=== PATIENT | female | born 1955 | race African-American/Black ===

== ENCOUNTER 2016-10-27 10:03 | Emergency (ER) | payer MEDICARE, MEDICAID ==
[~2016-10-27] VITALS: Ht 149.9 cm; Wt 77.6 kg
[~2016-10-27 10:03] MED LIST: LACTULOSE20 GM/301 ORAL; NORCO 5-325 TA1 EACH ORAL; VICODIN 5-3001 EACH ORAL; diuretic
[2016-10-27 10:15] VITALS: BP 115/70
--- NOTE | 2016-10-27 10:31 | Emergency Room Report ---
History of Present Illness General Chief Complaint: Sore Throat Source: Patient Present Illness HPI 61-year-old female no significant past medical history presenting with sore throat for the last 2 days. Patient reports mild cough. Patient denies any fever or any chills. He states that daughter has a sore throat for the last week. Patient has been able to eat and drink normally Allergies: Coded Allergies: No Known Allergies (Unverified , 06/23/13) Patient History Past Medical History: none Past Surgical History: none Pertinent Family History: none Now: No Review of Systems ENT: Reports: throat pain All Other Systems: negative except mentioned in HPI Physical Exam Vital Signs Date Time Temp Pulse Resp B/P Pulse Ox O2 Delivery O2 Flow Rate FiO2 10/27/16 10:10 97.9 80 15 115/70 98 Room Air Sp02 EP Interpretation: reviewed, normal General Appearance: normal inspection, well appearing, no apparent distress, alert, GCS 15, non-toxic Head: normocephalic, atraumatic Eyes: bilateral eye EOMI, bilateral eye PERRL, bilateral eye normal inspection ENT: normal voice, moist mucus membranes, other - Mild bilateral tonsillar erythema with tiny pinpoint vesicles. No exudates. No tonsillar enlargement or uvula enlargement or deviation. No signs of BOAT FINISHER Neck: normal inspection, full range of motion, supple, no bony tend Respiratory: normal inspection, lungs clear, normal breath sounds, no respiratory distress, no retraction, no wheezing, speaking full sentences, chest symmetrical Cardiovascular #1: normal inspection, regular rate, rhythm, normal capillary refill Gastrointestinal: normal inspection, non tender, soft, non-distended, no guarding Musculoskeletal: normal inspection, back normal, normal range of motion, non- tender Neurologic: normal inspection, alert, oriented x3, responsive, motor strength/ tone normal, sensory intact, normal gait, speech normal Psychiatric: normal inspection, judgement/insight normal, memory normal Skin: normal inspection, normal color, no rash, warm/dry, well hydrated, normal turgor Medical Decision Making Diagnostic Impression: Primary Impression: Viral pharyngitis ER Course 61 Yo F with sore throat for 2days DDX: viral vs. infectious mononucleosis vs. bacterial pharyngitis vs. allergies Other serious causes such as BOAT FINISHER / RPA / deep space neck infection history/physical most consistent with viral pharyngitis Plan: nsaids, supportive care. Abx not indicated at this time ER course: Patient remains stable in ED. Disposition: Patient will be discharged to home. Patient will follow up with primary care doctor within 5 days. Strict return precautions discussed with patient such as worsening throat pain/swelling, dysphagia, high fever or chills, shortness of breath, abdominal pain, which may indicate severe illness. Patient verbalized understanding and agreed with plan. Last Vital Signs Date Time Temp Pulse Resp B/P Pulse Ox O2 Delivery O2 Flow Rate FiO2 10/27/16 10:15 97.9 15 115/70 98 Room Air 10/27/16 10:10 80 Disposition: HOME, SELF-CARE Condition: Stable Additional Instructions: Please follow up with your primary care doctor within 3 days. PLEASE TAKE NAPROXEN FOR PAIN. Please return to the emergency room immediately if you are experiencing severe or worsening pain, high fevers or chills, shortness of breath, worsening throat pain, inability to swallow Gunnar Nielsen M.D. Oct 27, 2016 10:31
[2016-10-27 10:50] VITALS: BP 115/70
== END 2016-10-27 10:53 | disposition home or self-care (01) ==
LOC: EMR 10:32
DX: J02.9 Acute pharyngitis, unspecified (principal)
CPT/HCPCS: 99282

== ENCOUNTER 2018-10-17 09:43 | Emergency (ER) | payer MEDICARE, MEDICAID ==
[~2018-10-17] VITALS: Ht 149.9 cm; Wt 79.4 kg
--- NOTE | 2018-10-17 10:00 | NUR ---
ED Nurse Note: Patent walked into ED c/o nausea, vomiting, diarrhea since this morning after eating chicken from last night. patient is alert awake x4 ambulatory.
--- NOTE | 2018-10-17 10:12 | Emergency Room Report ---
History of Present Illness General Chief Complaint: Nausea, Vomiting, and Diarrhea Source: Patient Present Illness HPI Patient presents with abdominal pain vomiting and diarrhea that began last night. She had some chicken that may had not been okay. She denies any dysuria. The pain is fairly significant, although she is complaining more about nausea. She has had multiple bouts of diarrhea through the night and morning. She denies any melena or hematochezia. The diarrhea is brown in color. Is fairly watery. She is never had this problem before. She denies any history of diverticulitis, renal stones, dysuria, urinary tract infection. She denies coffee grounds or hematemesis. The pain is rated 5/10 and crampy worsened before bouts of diarrhea. Is diffuse. 2014 she had abdominal pain. She has constipation and low potassium at that time. This feels different to her. She denies diabetes or high blood pressure. No fevers, chills, sore throat, chest pain, palpitations, shortness of breath, joint pain, rashes, visual changes, headache. Allergies: Coded Allergies: No Known Allergies (Unverified , 10/17/18) Patient History Past Medical History: see triage record Social History: Denies: smoking Social History Narrative Here with her daughter Reviewed Nursing Documentation: PMH: Agreed; PSxH: Agreed Nursing Documentation-PMH Past Medical History: No History, Except For Review of Systems All Other Systems: negative except mentioned in HPI Physical Exam Vital Signs Date Time Temp Pulse Resp B/P (MAP) Pulse Ox O2 Delivery O2 Flow Rate FiO2 10/17/18 09:50 97.5 100 18 106/72 (83) 100 Room Air Sp02 EP Interpretation: reviewed, normal General Appearance: well appearing, no apparent distress, GCS 15 Head: normocephalic, atraumatic Eyes: bilateral eye normal inspection, bilateral eye PERRL ENT: moist mucus membranes Neck: supple Respiratory: lungs clear, normal breath sounds Cardiovascular #1: regular rate, rhythm Cardiovascular #2: 2+ radial (R) Gastrointestinal: normal inspection, normal bowel sounds, no mass, non- distended, no guarding, no rebound, tenderness - Diffuse Genitourinary: no CVA tenderness Musculoskeletal: back normal, gait/station normal, normal range of motion Neurologic: alert, oriented x3, grossly normal Psychiatric: anxious Skin: no rash Medical Decision Making Diagnostic Impression: Primary Impression: Nausea, vomiting, and diarrhea Additional Impression: Hypokalemia ER Course Presents with abdominal pain nausea vomiting diarrhea. Differential includes gastroenteritis, food poisoning, diverticulitis, pancreatitis amongst others. Evaluation will be with EKG, abdominal film and labs. The patient will receive IV hydration, Reglan, Benadryl and morphine. EKG without injury. Abdominal film with paucity of gas. Normal white count. Electrolytes significant for low potassium. Still nauseated. Zofran administered. Tolerated potassium. Feeling anxious and requests Ativan. Improved and tolerating ice chips. Still with nausea. Patient states pain is improved. Still passing loose stools. Wants to go home with a trial of antiemetics. She does have pain medication at home. Discussed results with patient and daughter. Also discussed treatment plan with close observation at home and follow-up with her doctor next week. Patient stable for outpatient observation and treatment. Laboratory Tests Test 10/17/18 10:21 10/17/18 12:18 White Blood Count 10.7 K/UL (4.8-10.8) Red Blood Count 4.94 M/UL (4.20-5.40) Hemoglobin 14.2 G/DL (12.0-16.0) Hematocrit 41.0 % (37.0-47.0) Mean Corpuscular Volume 83 FL (80-99) Mean Corpuscular Hemoglobin 28.8 PG (27.0-31.0) Mean Corpuscular Hemoglobin Concent 34.6 G/DL (32.0-36.0) Red Cell Distribution Width 13.4 % (11.6-14.8) Platelet Count 323 K/UL (150-450) Mean Platelet Volume 6.1 FL (6.5-10.1) L Neutrophils (%) (Auto) 76.9 % (45.0-75.0) H Lymphocytes (%) (Auto) 17.7 % (20.0-45.0) L Monocytes (%) (Auto) 4.2 % (1.0-10.0) Eosinophils (%) (Auto) 0.3 % (0.0-3.0) Basophils (%) (Auto) 0.8 % (0.0-2.0) Prothrombin Time 10.2 SEC (9.30-11.50) Prothrombin Time INR 1.0 (0.9-1.1) PTT 24 SEC (23-33) Sodium Level 137 MMOL/L (136-145) Potassium Level 3.1 MMOL/L (3.5-5.1) L Chloride Level 101 MMOL/L (98-107) Carbon Dioxide Level 23 MMOL/L (21-32) Anion Gap 14 mmol/L (5-15) Blood Urea Nitrogen 14 mg/dL (7-18) Creatinine 0.9 MG/DL (0.55-1.30) Estimate Glomerular Filtration Rate > 60 mL/min (>60) Glucose Level 163 MG/DL (74-106) H Calcium Level 9.7 MG/DL (8.5-10.1) Total Bilirubin 0.4 MG/DL (0.2-1.0) Aspartate Amino Transferase (AST) 23 U/L (15-37) Alanine Aminotransferase (ALT) 25 U/L (12-78) Alkaline Phosphatase 74 U/L (46-116) Troponin I 0.000 ng/mL (0.000-0.056) Total Protein 8.1 G/DL (6.4-8.2) Albumin 4.1 G/DL (3.4-5.0) Globulin 4.0 g/dL Albumin/Globulin Ratio 1.0 (1.0-2.7) Lipase 108 U/L (73-393) Urine Color Pale yellow Urine Appearance Clear Urine pH 7 (4.5-8.0) Urine Specific [place] 1.010 (1.005-1.035) Urine Protein Negative (NEGATIVE) Urine Glucose (UA) Negative (NEGATIVE) Urine Ketones 2+ (NEGATIVE) H Urine Blood 3+ (NEGATIVE) H Urine Nitrite Negative (NEGATIVE) Urine Bilirubin Negative (NEGATIVE) Urine Urobilinogen Normal MG/DL (0.0-1.0) Urine Leukocyte Esterase Negative (NEGATIVE) Urine RBC 2-4 /HPF (0 - 2) H Urine WBC 0 /HPF (0 - 2) Urine Squamous Epithelial Cells Few /LPF (NONE/OCC) Urine Bacteria Occasional /HPF (NONE) EKG Diagnostic Results Rate: normal Rhythm: NSR ST Segments: no acute changes Rhythm Strip Diag. Results EP Interpretation: yes Rhythm: NSR, no PVC's, no ectopy Other X-Ray Diagnostic Results Other X-Ray Diagnostic Results : X-Ray ordered: Abdomen # of Views/Limited Vs Complete: 1 View Indication: Other EP Interpretation: Yes Interpretation: nonspecific bowel gas, no sbo, other - No masses Impression: No acute disease Electronically Signed by: Electronically signed by Lew Bradford MD Last Vital Signs Date Time Temp Pulse Resp B/P (MAP) Pulse Ox O2 Delivery O2 Flow Rate FiO2 10/17/18 15:30 97.5 94 18 120/65 100 Room Air Status: improved Disposition: HOME, SELF-CARE Condition: Improved Scripts Famotidine (PEPCID AC) 20 Mg Tablet 20 MG PO DAILY, #7 TAB Prov: Lew Bradford MD 10/17/18 Promethazine HCl (Promethegan) 25 Mg Supp.rect 25 MG RECTAL Q8HR PRN for Nausea & Vomiting, #4 SUPP 1 Refill Prov: Lew Bradford MD 10/17/18 Promethazine Hcl* (PHENERGAN*) 25 Mg Tablet 25 MG ORAL Q8HR PRN for Nausea & Vomiting, #8 TAB 1 Refill Prov: Lew Bradford MD 10/17/18 Ondansetron Odt* (ZOFRAN ODT*) 4 Mg Tab.rapdis 4 MG BC EVERY 8 HOURS, #6 TAB 1 Refill Prov: Lew Bradford MD 10/17/18 Lew Bradford MD Oct 17, 2018 10:12
[2018-10-17] MEDS ORDERED: Metoclopramide 10mg/2ml Inj IVP ONE (10:15)
[2018-10-17] MEDS ORDERED: Morphine Sulfate 4mg/ml Inj (IV USE ONLY) IVP ONE (10:15)
[2018-10-17] MEDS ORDERED: DiphenhydrAMINE 50mg/ml Inj IVP ONE (10:15)
[2018-10-17 10:45] LABS: BASOPHILS % (AUTO) 0.8 % (0.0-2.0); EOSINOPHILS % (AUTO) 0.3 % (0.0-3.0); HEMOGLOBIN 14.2 G/DL (12.0-16.0); LYMPHOCYTES % (AUTO) 17.7 % (20.0-45.0); MEAN CORPUSCULAR VOLUME 83 FL (80-99); MONOCYTES % (AUTO) 4.2 % (1.0-10.0); NEUTROPHILS % (AUTO) 76.9 % (45.0-75.0); PLATELET COUNT 323 K/UL (150-450); RED BLOOD COUNT 4.94 M/UL (4.20-5.40); RED CELL DISTRIBUTION WIDTH 13.4 % (11.6-14.8); WHITE BLOOD COUNT 10.7 K/UL (4.8-10.8)
--- NOTE | 2018-10-17 10:47 | Diagnostic Imaging Report ---
Indication: Trauma pain Technique: XRAY Abdomen 1v Comparison: None Findings: Nonspecific bowel gas pattern with overall paucity of bowel gas. No gaseous distention of small bowel loops to suggest small bowel obstruction. No evidence of free intraperitoneal air. There are degenerative changes in the spine. No acute osseous abnormality. Visualized lung bases grossly clear. No radiopaque foreign body. Impression: Nonspecific bowel gas pattern as above.
[2018-10-17 10:58] LABS: ANION GAP 14 mmol/L (5-15); BLOOD UREA NITROGEN 14 mg/dL (7-18); CALCIUM 9.7 MG/DL (8.5-10.1); CARBON DIOXIDE 23 MMOL/L (21-32); CHLORIDE 101 MMOL/L (98-107); CREATININE 0.9 MG/DL (0.55-1.30); POTASSIUM 3.1 MMOL/L (3.5-5.1); SODIUM 137 MMOL/L (136-145)
[2018-10-17 11:01] LABS: ALANINE AMINOTRANSFERASE 25 U/L (12-78); ALBUMIN 4.1 G/DL (3.4-5.0); ALKALINE PHOSPHATASE 74 U/L (46-116); ASPARTATE AMINO TRANSFERASE 23 U/L (15-37); BILIRUBIN,TOTAL 0.4 MG/DL (0.2-1.0)
[2018-10-17 11:39] VITALS: BP 120/65
[2018-10-17] MEDS ORDERED: Morphine Sulfate 2mg/ml Inj(IV/IM USE ONLY) IVP ONE (12:45)
--- NOTE | 2018-10-17 12:53 | NUR ---
ED Nurse Note: PT. GIVEN WARM BLANKETS
[2018-10-17 12:55] LABS: APPEARANCE,URINE CLEAR; BILIRUBIN, URINE NEGATIVE (NEGATIVE); COLOR,URINE PALE YELLOW; GLUCOSE, URINE (UA) NEGATIVE (NEGATIVE); KETONES,URINE 2+ (NEGATIVE); LEUKOCYTE ESTERASE ,URINE NEGATIVE (NEGATIVE); NITRITE,URINE NEGATIVE (NEGATIVE); PH,URINE 7 (4.5-8.0); PROTEIN,URINE NEGATIVE (NEGATIVE); UROBILINOGEN,URINE NORMAL MG/DL (0.0-1.0)
[2018-10-17] MEDS ORDERED: LORazepam Inj 2mg/ml 1ml IV ONE (15:00)
[2018-10-17] MEDS ORDERED: PEPCID AC20 M2 PO (15:24)
[2018-10-17] MEDS ORDERED: PHENERGAN SUPP25 MG RECTAL (15:24)
[2018-10-17] MEDS ORDERED: PHENERGAN25 M1 ORAL (15:24)
[2018-10-17] MEDS ORDERED: ONDANSETRON ODT4 MG BC (15:24)
[2018-10-17 15:30] VITALS: BP 120/65
--- NOTE | 2018-10-17 15:30 | NUR ---
ER DISCHARGE NOTE: Patient is cleared to be discharged per ERMD DR RIBEIRO, pt is aox4, on room air, with stable vital signs. pt was given dc and prescription instructions, pt was able to verbalize understanding, pt id band and iv site removed without complications. pt is able to ambulate with steady gait. pt took all belongings.
== END 2018-10-17 15:30 | disposition home or self-care (01) ==
LOC: EMR 10:26
DX: R11.2 Nausea with vomiting, unspecified (principal); R19.7 Diarrhea, unspecified; E87.6 Hypokalemia
CPT/HCPCS: 36415; 74018; 80053; 81003; 83690; 84484; 85025; 85610; 85730; 96361; 96374; 96375; 96376; 99284; J1200; J2270; J2405; J2765; J8499

== ENCOUNTER 2019-08-24 09:11 | Emergency (ER) | payer MEDICARE, MEDICAID ==
[~2019-08-24] VITALS: Ht 149.9 cm; Wt 79.4 kg
[~2019-08-24 09:11] MED LIST changes: +ONDANSETRON ODT4 MG BC; +PEPCID AC20 M2 PO; +PHENERGAN SUPP25 MG RECTAL; +PHENERGAN25 M1 ORAL; +ZOFRAN4 M3 ORAL
[2019-08-24 09:21] VITALS: BP 159/84
--- NOTE | 2019-08-24 09:21 | NUR ---
ED Nurse Note: Patient walked in to ED c/o nause, vomiting, diarrhea since this AM. Pt also c/o lower abdominal pain. Per pt, she ate some greens yesterday and thinks she got food poisoning. Pt is retching and throwing up saliva. AAOx4, verbally responsive. No SOB. Afebrile. Pt placed on pathology tech.
--- NOTE | 2019-08-24 09:30 | NUR ---
ED Nurse Note: IV line established. Blood specimen collected and sent to lab.
--- NOTE | 2019-08-24 09:43 | Emergency Room Report ---
History of Present Illness General Chief Complaint: Vomiting Source: Patient Present Illness HPI This patient states that she believes she has food poisoning. She states that yesterday evening around 7 PM she did have some [place] greens. She states she woke up around 7 AM this morning with nausea and vomiting. She denies fever or chills. She denies cough or congestion. She denies chest pain or shortness of breath. She denies abdominal pain. She denies dysuria or hematuria. She admits to using marijuana daily and heavily. She has no other complaints. 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 Patient History Past Medical History: see triage record, HTN, GERD Social History: Reports: drug use - THC, daily/heavy; Denies: smoking, alcohol use Now: No Reviewed Nursing Documentation: PMH: Agreed; PSxH: Agreed Review of Systems All Other Systems: negative except mentioned in HPI Physical Exam Vital Signs Date Time Temp Pulse Resp B/P (MAP) Pulse Ox O2 Delivery O2 Flow Rate FiO2 08/24/19 09:15 99.1 102 18 159/84 (109) 99 Room Air Sp02 EP Interpretation: reviewed, normal General Appearance: no apparent distress, alert, GCS 15, non-toxic, other - Actively vomiting, anxious, hyperventilating Head: normocephalic, atraumatic Eyes: bilateral eye normal inspection, bilateral eye PERRL ENT: hearing grossly normal, normal pharynx, no angioedema, normal voice Neck: full range of motion, supple/symm/no masses Respiratory: chest non-tender, lungs clear, normal breath sounds, no respiratory distress, no retraction, no accessory muscle use, speaking full sentences Cardiovascular #1: regular rate, rhythm, no edema Gastrointestinal: normal bowel sounds, non tender, soft, non-distended, no guarding, no rebound Rectal: deferred Musculoskeletal: back normal, normal range of motion, gait/station normal, non- tender Neurologic: alert, motor strength/tone normal, oriented x3, sensory intact, responsive, speech normal Psychiatric: judgement/insight normal, memory normal, mood/affect normal, no suicidal/homicidal ideation Skin: no rash, normal color Medical Decision Making Diagnostic Impression: Primary Impression: Intractable nausea and vomiting Additional Impression: Hypokalemia ER Course This patient continued to have intractable nausea and vomiting during her ED course. Given the patient's age and that her potassium is already low, I felt that this patient should be admitted for ongoing IV fluids, potassium replacement and nausea control. I was also concerned about sending this patient home because if I continue to give her medications that will prolong her QT she could have an arrhythmia. She already has a slightly prolonged QT on EKG. CT of the abdomen pelvis was unremarkable laboratory work-up was also unremarkable. I differential diagnosis includes cannabis hyperemesis, cyclic vomiting syndrome, severe gastritis, or severe gastroenteritis. Regardless, overall the patient remained stable in the emergency department and is admitted for ongoing treatment for intractable nausea and vomiting. Laboratory Tests Test 08/24/19 09:20 08/24/19 10:14 08/24/19 10:44 White Blood Count 7.7 K/UL (4.8-10.8) Red Blood Count 4.86 M/UL (4.20-5.40) Hemoglobin 13.8 G/DL (12.0-16.0) Hematocrit 42.0 % (37.0-47.0) Mean Corpuscular Volume 86 FL (80-99) Mean Corpuscular Hemoglobin 28.3 PG (27.0-31.0) Mean Corpuscular Hemoglobin Concent 32.8 G/DL (32.0-36.0) Red Cell Distribution Width 14.2 % (11.6-14.8) Platelet Count 303 K/UL (150-450) Mean Platelet Volume 6.9 FL (6.5-10.1) Neutrophils (%) (Auto) 57.3 % (45.0-75.0) Lymphocytes (%) (Auto) 35.4 % (20.0-45.0) Monocytes (%) (Auto) 4.4 % (1.0-10.0) Eosinophils (%) (Auto) 1.5 % (0.0-3.0) Basophils (%) (Auto) 1.4 % (0.0-2.0) Sodium Level 142 MMOL/L (136-145) Potassium Level 3.1 MMOL/L (3.5-5.1) L Chloride Level 104 MMOL/L (98-107) Carbon Dioxide Level 22 MMOL/L (21-32) Anion Gap 16 mmol/L (5-15) H Blood Urea Nitrogen 12 mg/dL (7-18) Creatinine 1.0 MG/DL (0.55-1.30) Estimated Glomerular Filtration Rate > 60 mL/min (>60) Glucose Level 173 MG/DL (74-106) H Calcium Level 9.1 MG/DL (8.5-10.1) Total Bilirubin 0.3 MG/DL (0.2-1.0) Aspartate Amino Transferase (AST) 31 U/L (15-37) Alanine Aminotransferase (ALT) 34 U/L (12-78) Alkaline Phosphatase 91 U/L (46-116) Total Protein 7.9 G/DL (6.4-8.2) Albumin 4.0 G/DL (3.4-5.0) Globulin 3.9 g/dL Albumin/Globulin Ratio 1.0 (1.0-2.7) Lipase 180 U/L (73-393) Urine Opiates Screen Negative (NEGATIVE) Urine Barbiturates Screen Negative (NEGATIVE) Phencyclidine (PCP) Screen Negative (NEGATIVE) Urine Amphetamines Screen Negative (NEGATIVE) Urine Benzodiazepines Screen Negative (NEGATIVE) Urine Cocaine Screen Negative (NEGATIVE) Urine Marijuana (THC) Screen Positive (NEGATIVE) H Urine Color Pale yellow Urine Appearance Clear Urine pH 8 (4.5-8.0) Urine Specific [place] 1.010 (1.005-1.035) Urine Protein Negative (NEGATIVE) Urine Glucose (UA) Negative (NEGATIVE) Urine Ketones 1+ (NEGATIVE) H Urine Blood 1+ (NEGATIVE) H Urine Nitrite Negative (NEGATIVE) Urine Bilirubin Negative (NEGATIVE) Urine Urobilinogen Normal MG/DL (0.0-1.0) Urine Leukocyte Esterase Negative (NEGATIVE) Urine RBC 0-2 /HPF (0 - 2) Urine WBC 0-2 /HPF (0 - 2) Urine Squamous Epithelial Cells Few /LPF (NONE/OCC) Urine Bacteria Occasional /HPF (NONE) EKG Diagnostic Results Rate: normal Rhythm: NSR ST Segments: no acute changes Other Impression Prolonged Qtc Rhythm Strip Diag. Results EP Interpretation: yes Rate: 80's Rhythm: NSR, no PVC's, no ectopy CT/MRI/US Diagnostic Results CT/MRI/US Diagnostic Results : Imaging Test Ordered: CT abd/pelvis Impression No acute findings. See official report in electronic medical record. Last Vital Signs Date Time Temp Pulse Resp B/P (MAP) Pulse Ox O2 Delivery O2 Flow Rate FiO2 08/24/19 09:15 99.1 102 18 159/84 (109) 99 Room Air Disposition: ADMITTED INPATIENT Condition: Stable Victorina Brewer DO Aug 24, 2019 09:43
[2019-08-24] MEDS ORDERED: Capsaicin 0.075% Cream TOPIC ONE (09:45)
[2019-08-24 09:49] LABS: BASOPHILS % (AUTO) 1.4 % (0.0-2.0); EOSINOPHILS % (AUTO) 1.5 % (0.0-3.0); HEMOGLOBIN 13.8 G/DL (12.0-16.0); LYMPHOCYTES % (AUTO) 35.4 % (20.0-45.0); MEAN CORPUSCULAR VOLUME 86 FL (80-99); MONOCYTES % (AUTO) 4.4 % (1.0-10.0); NEUTROPHILS % (AUTO) 57.3 % (45.0-75.0); PLATELET COUNT 303 K/UL (150-450); RED BLOOD COUNT 4.86 M/UL (4.20-5.40); RED CELL DISTRIBUTION WIDTH 14.2 % (11.6-14.8); WHITE BLOOD COUNT 7.7 K/UL (4.8-10.8)
[2019-08-24 10:06] LABS: ANION GAP 16 mmol/L (5-15); BLOOD UREA NITROGEN 12 mg/dL (7-18); CALCIUM 9.1 MG/DL (8.5-10.1); CARBON DIOXIDE 22 MMOL/L (21-32); CHLORIDE 104 MMOL/L (98-107); POTASSIUM 3.1 MMOL/L (3.5-5.1); SODIUM 142 MMOL/L (136-145)
[2019-08-24 10:15] LABS: ALANINE AMINOTRANSFERASE 34 U/L (12-78); ALKALINE PHOSPHATASE 91 U/L (46-116); ASPARTATE AMINO TRANSFERASE 31 U/L (15-37); BILIRUBIN,TOTAL 0.3 MG/DL (0.2-1.0)
[2019-08-24] MEDS ORDERED: Omnipaque-300 100ml vial INJ PRN (10:15)
[2019-08-24] MEDS ORDERED: Ketorolac 30mg Inj IV ONE (10:15)
--- NOTE | 2019-08-24 10:21 | NUR ---
ED Nurse Note: Pt was taken to CT via gretchen.
--- NOTE | 2019-08-24 10:30 | NUR ---
ED Nurse Note: Pt returned to CT.
--- NOTE | 2019-08-24 10:45 | NUR ---
ED Nurse Note: Urine specimen collected and sent to lab.
--- NOTE | 2019-08-24 10:59 | Diagnostic Imaging Report ---
EXAM: CT CT Abdomen Pelvis w/Contrast INDICATION: Abdominal pain. Nausea vomiting. COMPARISON: None TECHNIQUE: Axial images were obtained through the abdomen pelvis with intravenous contrast. Sagittal and coronal reformats are generated. All CT scans at this facility are performed using dose modulation techniques as appropriate to a performed exam including the following: automated exposure control with adjustment of the mA and/or kV according to patient size. RADIATION DOSE: CTDIvol: 11.6 mGy DLP: 535.8 mGy-cm Dose information generated by the CT scanner is available in PACS. FINDINGS: The lung bases are clear. The liver and spleen are homogeneous. Gallbladder is without sludge or stone and there is no wall thickening. The pancreas is unremarkable. Adrenals are normal in morphology. The kidneys are normal in size, shape and axis. Small bowel loops are nondistended. The colon is also nondistended with average amount of stool. The appendix is normal. There is no free fluid or free air. No pathologic adenopathy demonstrated. Urinary bladder appears unremarkable. Mild degenerative changes noted along the lumbar spine. No discrete osseous abnormality demonstrated. There is a small fatty umbilical hernia. IMPRESSION: NO SIGN OF ACUTE DISEASE IN THE ABDOMEN AND PELVIS. SMALL FATTY UMBILICAL HERNIA.
[2019-08-24 11:00] VITALS: BP 149/86
[2019-08-24] MEDS ORDERED: HYDROcodone/Acetamin 5/325 tab ORAL ONE (11:00)
[2019-08-24 11:18] LABS: APPEARANCE,URINE CLEAR; BILIRUBIN, URINE NEGATIVE (NEGATIVE); COLOR,URINE PALE YELLOW; GLUCOSE, URINE (UA) NEGATIVE (NEGATIVE); KETONES,URINE 1+ (NEGATIVE); LEUKOCYTE ESTERASE ,URINE NEGATIVE (NEGATIVE); NITRITE,URINE NEGATIVE (NEGATIVE); PH,URINE 8 (4.5-8.0); PROTEIN,URINE NEGATIVE (NEGATIVE); UROBILINOGEN,URINE NORMAL MG/DL (0.0-1.0)
--- NOTE | 2019-08-24 11:26 | NUR ---
ED Nurse Note: Pt c/o nausea and noted with episodes of vomiting. ERMD notified. Zofran 4ml given as ordered.
[2019-08-24] MEDS ORDERED: Metoclopramide 10mg/2ml Inj IVP ONE (12:15)
[2019-08-24] MEDS ORDERED: DiphenhydrAMINE 25mg Tab ORAL ONE (12:45)
[2019-08-24] MEDS ORDERED: D5 1/2NS 1,000 ML IV SCH (13:45)
--- NOTE | 2019-08-24 13:50 | General Progress Note ---
Assessment/Plan Problem List: (1) Abdominal pain ICD Codes: R10.9 - Unspecified abdominal pain SNOMED: 02666643 (2) Intractable nausea and vomiting ICD Codes: R11.2 - Nausea with vomiting, unspecified SNOMED: 222173486 (3) Uterine fibroid Assessment/Plan: gastroenteritis Cannabinoid hyperemesis syndrome ivf zofran clears drug screen test stool studies CT reviewed will fu Subjective Allergies: Coded Allergies: No Known Allergies (Unverified , 10/17/18) Objective Last 24 Hour Vital Signs Date Time Temp Pulse Resp B/P (MAP) Pulse Ox O2 Delivery O2 Flow Rate FiO2 08/24/19 11:25 99.1 08/24/19 10:45 99.1 08/24/19 09:21 99.1 102 18 159/84 99 Room Air 08/24/19 09:21 102 18 Room Air 08/24/19 09:15 99.1 102 18 159/84 (109) 99 Room Air Laboratory Tests 08/24/19 09:20: White Blood Count 7.7, Red Blood Count 4.86, Hemoglobin 13.8, Hematocrit 42.0, Mean Corpuscular Volume 86, Mean Corpuscular Hemoglobin 28.3, Mean Corpuscular Hemoglobin Concent 32.8, Red Cell Distribution Width 14.2, Platelet Count 303, Mean Platelet Volume 6.9, Neutrophils (%) (Auto) 57.3, Lymphocytes (%) (Auto) 35.4, Monocytes (%) (Auto) 4.4, Eosinophils (%) (Auto) 1.5, Basophils (%) (Auto ) 1.4, Sodium Level 142, Potassium Level 3.1L, Chloride Level 104, Carbon Dioxide Level 22, Anion Gap 16H, Blood Urea Nitrogen 12, Creatinine 1.0, Estimat Glomerular Filtration Rate > 60, Glucose Level 173H, Calcium Level 9.1, Total Bilirubin 0.3, Aspartate Amino Transf (AST/SGOT) 31, Alanine Aminotransferase (ALT/SGPT) 34, Alkaline Phosphatase 91, Total Protein 7.9, Albumin 4.0, Globulin 3.9, Albumin/Globulin Ratio 1.0, Lipase 180 08/24/19 10:14: Urine Opiates Screen Negative, Urine Barbiturates Screen Negative, Phencyclidine (PCP) Screen Negative, Urine Amphetamines Screen Negative, Urine Benzodiazepines Screen Negative, Urine Cocaine Screen Negative, Urine Marijuana (THC) Screen PositiveH 08/24/19 10:44: Urine Color Pale yellow, Urine Appearance Clear, Urine pH 8, Urine Specific [place] 1.010, Urine Protein Negative, Urine Glucose (UA) Negative, Urine Ketones 1+H, Urine Blood 1+H, Urine Nitrite Negative, Urine Bilirubin Negative, Urine Urobilinogen Normal, Urine Leukocyte Esterase Negative, Urine RBC 0-2, Urine WBC 0-2, Urine Squamous Epithelial Cells Few, Urine Bacteria Occasional Height (Feet): 4 Height (Inches): 11.00 Weight (Pounds): 175 General Appearance: alert EENT: PERRL/EOMI Neck: supple Cardiovascular: normal rate Respiratory/Chest: lungs clear Abdomen: normal bowel sounds, non tender, soft Extremities: non-tender Zhang Mehta MD Aug 24, 2019 13:50
[2019-08-24] MEDS ORDERED: ZOFRAN ODT8 MG ORAL (14:07)
[2019-08-24 14:13] VITALS: BP 135/78
--- NOTE | 2019-08-24 14:13 | NUR ---
ED Nurse Note: Pt cleared by ERMD for discharge. DC instructions was given and explained to pt and verbalized understanding of teachings. prescription sent electronically. All medical deviecs such as ID band removed. Pt is AAO x4, ambulatory and left with all personal belongings. P/u by daughter.
== END 2019-08-24 14:13 | disposition home or self-care (01) ==
LOC: EMR 09:54
DX: R10.9 Unspecified abdominal pain (principal); R11.2 Nausea with vomiting, unspecified; D25.9 Leiomyoma of uterus, unspecified; K21.9 Gastro-esophageal reflux disease without esophagitis; F12.988 Cannabis use, unspecified with other cannabis-induced disorder; R11.10 Vomiting, unspecified; I10 Essential (primary) hypertension; E87.6 Hypokalemia
CPT/HCPCS: 36415; 74177; 80053; 80307; 81003; 83690; 85025; 93005; 96361; 96374; 96375; 96376; 99285; J1885; J2405; J2765; J7030; Q9967; S0028; J8499

== ENCOUNTER 2019-12-15 22:53 | Inpatient (IN) | payer MEDICARE, MEDICAID ==
[~2019-12-15] VITALS: Ht 149.9 cm; Wt 81.0 kg
[~2019-12-15 22:53] MED LIST changes: +ZOFRAN ODT8 MG ORAL
[2019-12-15 23:40] VITALS: BP 149/77
--- NOTE | 2019-12-15 23:40 | NUR ---
ED Nurse Note: Patient walked into ED from home for c/o N/V/D for the past couple of days. She notes multiple episodes of diarrhea today since 1800. Decreased oral intake noted due to not being able to keep anything down without vomiting. Denies abdominal pain. She is aaox4, breathing is normal and unlabored. IV line established, blood drawn by RN and sent to lab. Safety measures met; will cont. to monitor.
[2019-12-15 23:51] LABS: BASOPHILS % (AUTO) 2.8 % (0.0-2.0); EOSINOPHILS % (AUTO) 0.8 % (0.0-3.0); HEMATOCRIT 36.6 % (37.0-47.0); HEMOGLOBIN 13.3 G/DL (12.0-16.0); LYMPHOCYTES % (AUTO) 25.8 % (20.0-45.0); MEAN CORPUSCULAR VOLUME 79 FL (80-99); MONOCYTES % (AUTO) 7.1 % (1.0-10.0); NEUTROPHILS % (AUTO) 63.5 % (45.0-75.0); PLATELET COUNT 323 K/UL (150-450); RED BLOOD COUNT 4.64 M/UL (4.20-5.40); RED CELL DISTRIBUTION WIDTH 13.1 % (11.6-14.8); WHITE BLOOD COUNT 7.8 K/UL (4.8-10.8)
[2019-12-16] VITALS (7 sets, daily range): BP systolic 108–148; BP diastolic 57–87
[2019-12-16 00:07] LABS: ALANINE AMINOTRANSFERASE 25 U/L (12-78); ALBUMIN 4.2 G/DL (3.4-5.0); ALBUMIN/GLOBULIN RATIO 1.2 (1.0-2.7); ALKALINE PHOSPHATASE 80 U/L (46-116); ANION GAP 16 mmol/L (5-15); ASPARTATE AMINO TRANSFERASE 21 U/L (15-37); BILIRUBIN,TOTAL 0.5 MG/DL (0.2-1.0); BLOOD UREA NITROGEN 11 mg/dL (7-18); CALCIUM 9.7 MG/DL (8.5-10.1); CARBON DIOXIDE 22 MMOL/L (21-32); CHLORIDE 100 MMOL/L (98-107); CREATININE 0.9 MG/DL (0.55-1.30); SODIUM 139 MMOL/L (136-145)
[2019-12-16 00:09] LABS: POTASSIUM 2.4 MMOL/L (3.5-5.1)
--- NOTE | 2019-12-16 00:10 | NUR ---
ED Nurse Note: Patient had two episodes of vomiting. aware.
[2019-12-16] MEDS ORDERED: Metoclopramide 10mg/2ml Inj IVP ONE (00:15)
[2019-12-16] MEDS ORDERED: DiphenhydrAMINE 50mg/ml Inj IVP ONE (00:15)
--- NOTE | 2019-12-16 00:40 | NUR ---
ED Nurse Note: Patient c/o abdominal pain/cramping. Will adminsiter morphine.
[2019-12-16] MEDS ORDERED: Morphine Sulfate 4mg/ml Inj (IV USE ONLY) IVP ONE (00:45)
[2019-12-16] MEDS ORDERED: Dicyclomine 20mg/2ml Inj IM ONE (00:45)
[2019-12-16] MEDS ORDERED: LORazepam Inj 2mg/ml 1ml IV ONE (00:45)
[2019-12-16 00:51] LABS: APPEARANCE,URINE CLEAR; COLOR,URINE PALE YELLOW; KETONES,URINE 3+ (NEGATIVE); PH,URINE 8 (4.5-8.0); PROTEIN,URINE NEGATIVE (NEGATIVE)
[2019-12-16 00:52] LABS: BILIRUBIN, URINE NEGATIVE (NEGATIVE); GLUCOSE, URINE (UA) NEGATIVE (NEGATIVE); LEUKOCYTE ESTERASE ,URINE NEGATIVE (NEGATIVE); NITRITE,URINE NEGATIVE (NEGATIVE); UROBILINOGEN,URINE NORMAL MG/DL (0.0-1.0)
--- NOTE | 2019-12-16 01:30 | NUR ---
ED Nurse Note: Patient now notes no pain/cramping. She is resting in bed, NAD noted. Will continue to monitor.
--- NOTE | 2019-12-16 01:39 | Emergency Room Report ---
History of Present Illness General Chief Complaint: Nausea, Vomiting, and Diarrhea Source: Patient Present Illness HPI 64-year-old female with a history of CHF on Lasix here with vomiting and diarrhea. Patient says that she ate a prepackaged salad that she bought from a store earlier today. Approximately 1 hour later she began to feel sharp abdominal pain and had vomiting and diarrhea multiple times throughout the day. Patient says "I just could not stop vomiting" and she had innumerable numbers of loose watery stools. Did not take any medication for symptoms. No headaches, vision changes, fevers, chills, chest pain, palpitations, shortness of breath, back pain, dysuria. Vomit has been nonbilious nonbloody. Stool has been nonbloody and non-melanotic. Allergies: Coded Allergies: No Known Allergies (Unverified , 10/17/18) COVID-19 Screening Contact w/high risk pt: No Recent Travel to affected area: No Experienced COVID-19 symptoms?: No COVID-19 Testing performed FOREST EXAMINER: No Patient History Now: No Nursing Documentation-[facility] Past Medical History: No History, Except For Review of Systems All Other Systems: negative except mentioned in HPI Physical Exam Vital Signs Date Time Temp Pulse Resp B/P (MAP) Pulse Ox O2 Delivery O2 Flow Rate FiO2 12/15/19 23:12 98.2 99 24 99 Room Air 12/15/19 23:40 149/77 Sp02 EP Interpretation: reviewed, normal General Appearance: alert, GCS 15, non-toxic, other - Writhing with abdominal discomfort Head: normocephalic, atraumatic Eyes: bilateral eye normal inspection, bilateral eye PERRL ENT: hearing grossly normal, normal pharynx, no angioedema, normal voice Neck: full range of motion, supple/symm/no masses Respiratory: chest non-tender, lungs clear, normal breath sounds, speaking full sentences Cardiovascular #1: regular rate, rhythm, no edema Cardiovascular #2: 2+ carotid (R), 2+ carotid (L), 2+ radial (R), 2+ radial (L), 2+ dorsalis pedis (R), 2+ dorsalis pedis (L) Gastrointestinal: normal bowel sounds, non tender, soft, non-distended, no guarding, no rebound, other - No focal abdominal tenderness on palpation. No distention, rebound, guarding Rectal: deferred Genitourinary: normal inspection, no CVA tenderness Musculoskeletal: back normal, normal range of motion, calf tenderness, gait/station normal, non-tender Neurologic: alert, motor strength/tone normal, oriented x3, sensory intact, responsive, speech normal Psychiatric: judgement/insight normal, memory normal, mood/affect normal, no suicidal/homicidal ideation Reflexes: 3+ bicep (R), 3+ bicep (L), 3+ tricep (R), 3+ tricep (L), 3+ knee (R), 3+ knee (L) Lymphatic: no adenopathy Medical Decision Making Diagnostic Impression: Primary Impression: Hypokalemia Additional Impressions: Abdominal pain Nausea, vomiting, and diarrhea ER Course Laboratory Tests Test 12/15/19 23:20 12/16/19 00:04 White Blood Count 7.8 K/UL (4.8-10.8) Red Blood Count 4.64 M/UL (4.20-5.40) Hemoglobin 13.3 G/DL (12.0-16.0) Hematocrit 36.6 % (37.0-47.0) L Mean Corpuscular Volume 79 FL (80-99) L Mean Corpuscular Hemoglobin 28.6 PG (27.0-31.0) Mean Corpuscular Hemoglobin Concent 36.3 G/DL (32.0-36.0) H Red Cell Distribution Width 13.1 % (11.6-14.8) Platelet Count 323 K/UL (150-450) Mean Platelet Volume 6.2 FL (6.5-10.1) L Neutrophils (%) (Auto) 63.5 % (45.0-75.0) Lymphocytes (%) (Auto) 25.8 % (20.0-45.0) Monocytes (%) (Auto) 7.1 % (1.0-10.0) Eosinophils (%) (Auto) 0.8 % (0.0-3.0) Basophils (%) (Auto) 2.8 % (0.0-2.0) H Sodium Level 139 MMOL/L (136-145) Potassium Level 2.4 MMOL/L (3.5-5.1) *L Chloride Level 100 MMOL/L (98-107) Carbon Dioxide Level 22 MMOL/L (21-32) Anion Gap 16 mmol/L (5-15) H Blood Urea Nitrogen 11 mg/dL (7-18) Creatinine 0.9 MG/DL (0.55-1.30) Estimated Glomerular Filtration Rate > 60 mL/min (>60) Glucose Level 165 MG/DL (74-106) H Calcium Level 9.7 MG/DL (8.5-10.1) Total Bilirubin 0.5 MG/DL (0.2-1.0) Aspartate Amino Transferase (AST) 21 U/L (15-37) Alanine Aminotransferase (ALT) 25 U/L (12-78) Alkaline Phosphatase 80 U/L (46-116) Total Protein 7.8 G/DL (6.4-8.2) Albumin 4.2 G/DL (3.4-5.0) Globulin 3.6 g/dL Albumin/Globulin Ratio 1.2 (1.0-2.7) Lipase 88 U/L (73-393) Urine Color Pale yellow Urine Appearance Clear Urine pH 8 (4.5-8.0) Urine Specific [place] 1.015 (1.005-1.035) Urine Protein Negative (NEGATIVE) Urine Glucose (UA) Negative (NEGATIVE) Urine Ketones 3+ (NEGATIVE) H Urine Blood 2+ (NEGATIVE) H Urine Nitrite Negative (NEGATIVE) Urine Bilirubin Negative (NEGATIVE) Urine Urobilinogen Normal MG/DL (0.0-1.0) Urine Leukocyte Esterase Negative (NEGATIVE) Urine RBC 2-4 /HPF (0 - 2) H Urine WBC 0 /HPF (0 - 2) Urine Squamous Epithelial Cells Few /LPF (NONE/OCC) Urine Bacteria None /HPF (NONE) EKG: NSR, no ischemia, QTC 492. U waves in V5 and V6.. No ectopy Rhythm strip: patient monitored for arrhythmias - no malignant dysrhythmias, runs of PVCs, nor pauses noted Total critical care time: Approximately 25 minutes Due to a high probability of clinically significant, life threatening deterioration, the patient required the highest level of preparedness to intervene emergently and I personally spent this critical care time directly and personally managing the patient. This critical care time included obtaining a history, examining the patient, pulse oximetry, ordering and reviewing studies, ordering treatments, evaluating response to treatment and updating management plan as needed, frequent reassessment and discussion with other providers as well as arranging for ultimate disposition. This critical to care time was performed to assess and manage the high probability of life-threatening deterioration that could result in multiorgan failure. This critical care time is separate from the separately billable procedures and treating other patients. 64-year-old female here with vomiting and diarrhea after eating a prepackaged salad. Patient was hemodynamically stable and had normal vital signs in the emergency department. She required multiple doses of antiemetics and pain medication to alleviate her symptoms. Potassium was 2.4. Other labs largely actually unremarkable. EKG showed signs of QT prolongation and U waves likely secondary to patient's severe hypokalemia. She was given 40 mEq of potassium p.o. and 20 mEq of potassium IV throughout her stay in the emergency department. Admitted to telemetry in stable condition. Last Vital Signs Date Time Temp Pulse Resp B/P (MAP) Pulse Ox O2 Delivery O2 Flow Rate FiO2 12/15/19 23:40 98.2 99 24 149/77 99 Room Air Referrals: BILL SEE MD (PCP) Fritz Maki M.D. Dec 16, 2019 01:39
--- NOTE | 2019-12-16 02:03 | NUR ---
ED Nurse Note: Report given to KIM Castaneda.
--- NOTE | 2019-12-16 02:04 | NUR ---
NURSE NOTES: Received report from KIM Falcon.
--- NOTE | 2019-12-16 02:25 | NUR ---
NURSE NOTES: Received patient from E. via [facility]. Patient is awake, alert and oriented x 4. Oriented to room and telemetry unit. Place rn cardiac rehab, shows sinus rhythm with no chest pain reported at this time. Patient is on room air, sating 97%. IV site is on right forearm g-20 running 2nd bag of KCL 10 meqs that is patent and intact. Patient is ambulatory with steady gait. Safety measures are in place, bed in lowest and locked position, side rails up x 2, call light button and bedside table within reach, instructed to call for any assistance needed. Will caitlin OJEDA for admission orders.
--- NOTE | 2019-12-16 02:25 | NUR ---
ED Nurse Note: Patient is stable for admission to tele unit at this time as ordered. She is aaox4, breathing is normal and unlabored. Patient taken to unit via gurney by dulce and RN, connected to ekg monitor. IV is patent. All belongings taken to unit with pt. MILIND at time of ED departure. VSS.
--- NOTE | 2019-12-16 02:45 | NUR ---
NURSE NOTES: Received admission orders from Dr. Jacques, will carry out.
[2019-12-16] MEDS ORDERED: 1/2NS w/KCl 20mEq 1000ml 1,000 ML IV SCH (03:00)
[2019-12-16 06:14] LABS: BASOPHILS % (AUTO) 4.2 % (0.0-2.0); EOSINOPHILS % (AUTO) 0.1 % (0.0-3.0); HEMATOCRIT 35.7 % (37.0-47.0); LYMPHOCYTES % (AUTO) 14.3 % (20.0-45.0); MEAN CORPUSCULAR VOLUME 79 FL (80-99); MONOCYTES % (AUTO) 4.8 % (1.0-10.0); NEUTROPHILS % (AUTO) 76.7 % (45.0-75.0); PLATELET COUNT 303 K/UL (150-450); RED BLOOD COUNT 4.55 M/UL (4.20-5.40); WHITE BLOOD COUNT 7.8 K/UL (4.8-10.8)
[2019-12-16 06:27] LABS: ANION GAP 15 mmol/L (5-15); BLOOD UREA NITROGEN 8 mg/dL (7-18); CALCIUM 8.4 MG/DL (8.5-10.1); CARBON DIOXIDE 23 MMOL/L (21-32); CHLORIDE 99 MMOL/L (98-107); CREATININE 0.8 MG/DL (0.55-1.30); POTASSIUM 3.1 MMOL/L (3.5-5.1); SODIUM 137 MMOL/L (136-145)
[2019-12-16 06:31] LABS: ALANINE AMINOTRANSFERASE 25 U/L (12-78); ALBUMIN/GLOBULIN RATIO 1.1 (1.0-2.7); ALKALINE PHOSPHATASE 78 U/L (46-116); ASPARTATE AMINO TRANSFERASE 21 U/L (15-37); BILIRUBIN,TOTAL 0.4 MG/DL (0.2-1.0)
--- NOTE | 2019-12-16 07:15 | NUR ---
NURSE HAND-OFF REPORT: Important Events on Shift: Patient has been complaining of Nausea, zofran was given. A few hours after that she was able to sleep Patient Status: Patient is now awake, alert and oriented x 4. At this time, patient is complaining of abdominal pain and nausated, Dr. Ozuna texted and awaiting for reply. Diet: NPO except medication Pending Orders: none Pending Results/Labs:none Pending MD notification: Latest Vital Signs: Temperature 99.0 , Pulse 82 , B/P 134 /87 , Respiratory Rate 18 , O2 SAT 97 , Room Air, O2 Flow Rate . Vital Sign Comment: stable EKG Rhythm: Sinus Tachycardia Rhythm change?: Y MD Notified?: N - MD Response: Latest Ramos Fall Score: 20 Fall Risk: Low Risk Safety Measures: Call light Within Reach, Bed Alarm , Side Rails Side Rails x2, Bed position Low and Locked. Fall Precautions: Yellow Socks Yellow Gown Door Sign Patient Fall Education Report given to KIM Sánchez.
--- NOTE | 2019-12-16 07:18 | NUR ---
NURSE NOTES: pt received from Rachel ALVAREZ. Pt in bed complaining of nausea and and abdominal pain, zofran given by Rachel [address] Ozuna to ask for additional medication for nausea. Bed low and locked call light within reach. Provided her with basin in case she vomits and told her to call if she gets worse.
--- NOTE | 2019-12-16 08:30 | NUR ---
NURSE NOTES: Pt has 10/10 abdominal pain and no pain meds. Also severe nausea. Hands completele contracted from low K. contacted Dr. Jacques, per says to contact Kirill. Left voicemail at office of Mr. Ferrera. Also contactemy Roy who responded by voicemail. Ordered dilauded 0.[address] Ozuna who ordered reglan 10mg q6 prn. Gave both along with 2 bags of 10meq K that Dr. Rivas ordered. Pain, nausea, and hand cramping resolved
[2019-12-16] MEDS ORDERED: Metoclopramide 10mg/2ml Inj IVP PRN (09:10)
[2019-12-16] MEDS ORDERED: Hydromorphone 0.5mg/0.5ml inj IVP PRN (09:11)
[2019-12-16 09:54] LABS: APPEARANCE,URINE CLEAR; BILIRUBIN, URINE NEGATIVE (NEGATIVE); COLOR,URINE PALE YELLOW; GLUCOSE, URINE (UA) NEGATIVE (NEGATIVE); KETONES,URINE 4+ (NEGATIVE); LEUKOCYTE ESTERASE ,URINE NEGATIVE (NEGATIVE); NITRITE,URINE NEGATIVE (NEGATIVE); PH,URINE 8 (4.5-8.0); PROTEIN,URINE 1+ (NEGATIVE); UROBILINOGEN,URINE NORMAL MG/DL (0.0-1.0)
--- NOTE | 2019-12-16 10:35 | Consultation ---
Consult Note Consult Note I am asked to evaluate the patient at the request of Dr. Michel for fluid and electrolyte management 64-year-old female with a history of CHF on Lasix here with vomiting and diarrhea. Patient says that she ate a prepackaged salad that she bought from a store earlier today. Approximately 1 hour later she began to feel sharp abdominal pain and had vomiting and diarrhea multiple times throughout the day. Patient says "I just could not stop vomiting" and she had innumerable numbers of loose watery stools. Did not take any medication for symptoms. No headaches, vision changes, fevers, chills, chest pain, palpitations, shortness of breath, back pain, dysuria. Vomit has been nonbilious nonbloody. Stool has been nonbloody and non-melanotic. Allergies: No Known Allergies (Unverified , 10/17/18) COVID-19 Screening Contact w/high risk pt: No Recent Travel to affected area: No Experienced COVID-19 symptoms?: No COVID-19 Testing performed TEMPORARY ADMINISTRATIVE ASSISTANT: No REVIEW OF SYSTEMS: Negative other than what is mentioned in history of present illness. PAST MEDICAL HISTORY: As mentioned above. FAMILY HISTORY: Noncontributory. SOCIAL HISTORY: She lives at home. 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 Does not smoke or drink alcohol. PHYSICAL EXAMINATION: VITAL SIGNS: Temperature 96.7, pulse 89, blood pressure 108/57. GENERAL APPEARANCE: Seems to be obese. HEAD AND NECK: Blackey conjunctivae. HEART: Normal rate. LUNGS: Clear. ABDOMEN: Obese, soft, nontender. EXTREMITIES: No edema. LABORATORY AND DIAGNOSTIC DATA: WBC 7.8, hemoglobin 13, hematocrit 35.7, and platelets 203,000. Sodium 137, potassium 3.1. Potassium at the time of admission was 2.4, chloride 99, BUN 8, creatinine 0.8, glucose 152. Urine toxicology was positive for THC. UA showed rbc's 10-15, ketones 4+, blood 3+. Echocardiogram showed ejection fraction of 65%. . Assessment/Plan Hypokalemia most likely due to diarrhea GI pathology: Nausea vomiting diarrhea, possible gastroenteritis History of CHF, on Lasix Suggestion: Potassium supplements 2D echocardiogram Per GI advice Monitor electrolytes and renal parameters Check urine for tox screen Jimbo Rivas MD Dec 16, 2019 10:34
--- NOTE | 2019-12-16 11:48 | Consultation ---
History of Present Illness General Date patient seen: Dec 16, 2019 Chief Complaint: Present Illness Allergies: Coded Allergies: No Known Allergies (Unverified , 10/17/18) Medication History Miscellaneous Medications [diuretic], (Reported) Discontinued Medications Famotidine (Pepcid Ac), 20 MG PO DAILY Discontinued Reason: Therapy completed Ondansetron Odt* (Zofran Odt*), 4 MG BC EVERY 8 HOURS Discontinued Reason: Pt stopped taking med Ondansetron Odt* (Zofran Odt*), 8 MG ORAL Q6H PRN for Nausea & Vomiting Discontinued Reason: Pt stopped taking med Ondansetron* (Zofran*), 4 MG ORAL Q6H PRN for Nausea & Vomiting Discontinued Reason: Pt stopped taking med Promethazine HCl (Promethegan), 25 MG RECTAL Q8HR PRN for Nausea & Vomiting Discontinued Reason: Pt stopped taking med Promethazine Hcl* (Phenergan*), 25 MG ORAL Q8HR PRN for Nausea & Vomiting Discontinued Reason: Pt stopped taking med Patient History Healthcare decision maker Resuscitation status Advanced Directive on File Physical Exam Last 24 Hour Vital Signs Date Time Temp Pulse Resp B/P (MAP) Pulse Ox O2 Delivery O2 Flow Rate FiO2 12/16/19 09:48 97.7 12/16/19 08:59 97.7 12/16/19 08:00 97.7 105 21 144/77 (99) 100 12/16/19 04:00 99.0 82 18 134/87 (103) 97 12/16/19 04:00 104 12/16/19 02:55 Room Air 12/16/19 02:40 99.3 88 19 139/86 (103) 97 12/16/19 02:34 100 12/16/19 02:25 91 20 Room Air 12/16/19 02:25 98.2 91 20 145/80 100 Room Air 12/16/19 01:50 98.2 95 20 148/77 99 Room Air 12/16/19 01:14 98.2 12/15/19 23:40 98.2 99 24 149/77 99 Room Air 12/15/19 23:12 98.2 99 24 99 Room Air Intake and Output 12/15/19 12/16/19 19:00 07:00 Intake Total 1200 ml Balance 1200 ml Intake Oral 200 ml IV Total 1000 ml # Voids 1 # Bowel Movements 2 Laboratory Tests Test 12/15/19 23:20 12/16/19 00:04 12/16/19 06:05 12/16/19 09:40 White Blood Count 7.8 K/UL (4.8-10.8) 7.8 K/UL (4.8-10.8) Red Blood Count 4.64 M/UL (4.20-5.40) 4.55 M/UL (4.20-5.40) Hemoglobin 13.3 G/DL (12.0-16.0) 13.0 G/DL (12.0-16.0) Hematocrit 36.6 % (37.0-47.0) L 35.7 % (37.0-47.0) L Mean Corpuscular Volume 79 FL (80-99) L 79 FL (80-99) L Mean Corpuscular Hemoglobin 28.6 PG (27.0-31.0) 28.5 PG (27.0-31.0) Mean Corpuscular Hemoglobin Concent 36.3 G/DL (32.0-36.0) H 36.3 G/DL (32.0-36.0) H Red Cell Distribution Width 13.1 % (11.6-14.8) 13.0 % (11.6-14.8) Platelet Count 323 K/UL (150-450) 303 K/UL (150-450) Mean Platelet Volume 6.2 FL (6.5-10.1) L 6.1 FL (6.5-10.1) L Neutrophils (%) (Auto) 63.5 % (45.0-75.0) 76.7 % (45.0-75.0) H Lymphocytes (%) (Auto) 25.8 % (20.0-45.0) 14.3 % (20.0-45.0) L Monocytes (%) (Auto) 7.1 % (1.0-10.0) 4.8 % (1.0-10.0) Eosinophils (%) (Auto) 0.8 % (0.0-3.0) 0.1 % (0.0-3.0) Basophils (%) (Auto) 2.8 % (0.0-2.0) H 4.2 % (0.0-2.0) H Sodium Level 139 MMOL/L (136-145) 137 MMOL/L (136-145) Potassium Level 2.4 MMOL/L (3.5-5.1) *L 3.1 MMOL/L (3.5-5.1) L Chloride Level 100 MMOL/L (98-107) 99 MMOL/L (98-107) Carbon Dioxide Level 22 MMOL/L (21-32) 23 MMOL/L (21-32) Anion Gap 16 mmol/L (5-15) H 15 mmol/L (5-15) Blood Urea Nitrogen 11 mg/dL (7-18) 8 mg/dL (7-18) Creatinine 0.9 MG/DL (0.55-1.30) 0.8 MG/DL (0.55-1.30) Estimat Glomerular Filtration Rate > 60 mL/min (>60) > 60 mL/min (>60) Glucose Level 165 MG/DL (74-106) H 152 MG/DL (74-106) H Calcium Level 9.7 MG/DL (8.5-10.1) 8.4 MG/DL (8.5-10.1) L Total Bilirubin 0.5 MG/DL (0.2-1.0) 0.4 MG/DL (0.2-1.0) Aspartate Amino Transf (AST/SGOT) 21 U/L (15-37) 21 U/L (15-37) Alanine Aminotransferase (ALT/SGPT) 25 U/L (12-78) 25 U/L (12-78) Alkaline Phosphatase 80 U/L (46-116) 78 U/L (46-116) Total Protein 7.8 G/DL (6.4-8.2) 7.8 G/DL (6.4-8.2) Albumin 4.2 G/DL (3.4-5.0) 4.0 G/DL (3.4-5.0) Globulin 3.6 g/dL 3.8 g/dL Albumin/Globulin Ratio 1.2 (1.0-2.7) 1.1 (1.0-2.7) Lipase 88 U/L (73-393) Urine Color Pale yellow Pale yellow Urine Appearance Clear Clear Urine pH 8 (4.5-8.0) 8 (4.5-8.0) Urine Specific [place] 1.015 (1.005-1.035) 1.010 (1.005-1.035) Urine Protein Negative (NEGATIVE) 1+ (NEGATIVE) H Urine Glucose (UA) Negative (NEGATIVE) Negative (NEGATIVE) Urine Ketones 3+ (NEGATIVE) H 4+ (NEGATIVE) H Urine Blood 2+ (NEGATIVE) H 3+ (NEGATIVE) H Urine Nitrite Negative (NEGATIVE) Negative (NEGATIVE) Urine Bilirubin Negative (NEGATIVE) Negative (NEGATIVE) Urine Urobilinogen Normal MG/DL (0.0-1.0) Normal MG/DL (0.0-1.0) Urine Leukocyte Esterase Negative (NEGATIVE) Negative (NEGATIVE) Urine RBC 2-4 /HPF (0 - 2) H 10-15 /HPF (0 - 2) H Urine WBC 0 /HPF (0 - 2) 0 /HPF (0 - 2) Urine Squamous Epithelial Cells Few /LPF (NONE/OCC) Occasional /LPF Urine Bacteria None /HPF (NONE) Few /HPF (NONE) Urine Opiates Screen Negative (NEGATIVE) Urine Barbiturates Screen Negative (NEGATIVE) Phencyclidine (PCP) Screen Negative (NEGATIVE) Urine Amphetamines Screen Negative (NEGATIVE) Urine Benzodiazepines Screen Negative (NEGATIVE) Urine Cocaine Screen Negative (NEGATIVE) Urine Marijuana (THC) Screen Positive (NEGATIVE) H Height (Feet): 4 Height (Inches): 11.00 Weight (Pounds): 175 Medications Current Medications Medications (Trade) Dose Ordered Sig/Betty Route PRN Reason Start Time Stop Time Status Last Admin Dose Admin Acetaminophen (Tylenol) 650 mg Q4H PRN ORAL Mild Pain (Pain Scale 1-3) 12/16/19 08:30 01/15/20 08:29 12/16/19 08:29 Famotidine (Pepcid I.v.) 20 mg Q12HR IVP 12/16/19 21:00 01/15/20 20:59 Hydromorphone HCl (Dilaudid) 0.5 mg Q4H PRN IVP For Pain 12/16/19 09:11 12/23/19 09:10 12/16/19 09:18 Ondansetron HCl (Zofran) 4 mg Q6H PRN IVP Nausea & Vomiting 12/16/19 02:15 01/15/20 02:14 12/16/19 03:58 Potassium Chloride/Sodium Chloride 1,000 ml @ 50 mls/hr Q20H IV 12/16/19 12:00 01/15/20 11:59 Assessment/Plan Assessment/Plan: (1) Abdominal pain (2) Cannabinoid Hyperemesis Syndrome seen dictated Chris Ferrera Dec 16, 2019 11:48
--- NOTE | 2019-12-16 12:25 | Diagnostic Imaging Report ---
Indication: Reason For Exam: SCREEN Technique: Grayscale and duplex images of the bilateral lower extremity veins Comparison: None Findings: Bilaterally, grayscale and duplex images demonstrate no evidence of intraluminal thrombus. Normal phasic Doppler waveforms, demonstrating normal augmentation response and no evidence of valvular insufficiency. Greater saphenous vein(s) and tibial veins are patent. Normal compressibility. Impression: Negative for evidence of lower extremity deep venous thrombosis bilaterally
[2019-12-16] MEDS: NS w/KCl 20mEq 1000ml 1,000 ML IV SCH (12:30)
--- NOTE | 2019-12-16 13:26 | Cardiac Electrophysiology PN ---
Subjective Subjective [id number] Objective Last 24 Hour Vital Signs Date Time Temp Pulse Resp B/P (MAP) Pulse Ox O2 Delivery O2 Flow Rate FiO2 12/16/19 12:00 88 12/16/19 12:00 96.7 89 19 108/57 (74) 98 12/16/19 09:48 97.7 12/16/19 09:00 Room Air 12/16/19 08:59 97.7 12/16/19 08:00 101 12/16/19 08:00 97.7 105 21 144/77 (99) 100 12/16/19 04:00 99.0 82 18 134/87 (103) 97 12/16/19 04:00 104 12/16/19 02:55 Room Air 12/16/19 02:40 99.3 88 19 139/86 (103) 97 12/16/19 02:34 100 12/16/19 02:25 91 20 Room Air 12/16/19 02:25 98.2 91 20 145/80 100 Room Air 12/16/19 01:50 98.2 95 20 148/77 99 Room Air 12/16/19 01:14 98.2 12/15/19 23:40 98.2 99 24 149/77 99 Room Air 12/15/19 23:12 98.2 99 24 99 Room Air Intake and Output 12/15/19 12/16/19 19:00 07:00 Intake Total 1200 ml Balance 1200 ml Intake Oral 200 ml IV Total 1000 ml # Voids 1 # Bowel Movements 2 Laboratory Tests Test 12/15/19 23:20 12/16/19 00:04 12/16/19 06:05 12/16/19 09:40 White Blood Count 7.8 K/UL (4.8-10.8) 7.8 K/UL (4.8-10.8) Red Blood Count 4.64 M/UL (4.20-5.40) 4.55 M/UL (4.20-5.40) Hemoglobin 13.3 G/DL (12.0-16.0) 13.0 G/DL (12.0-16.0) Hematocrit 36.6 % (37.0-47.0) L 35.7 % (37.0-47.0) L Mean Corpuscular Volume 79 FL (80-99) L 79 FL (80-99) L Mean Corpuscular Hemoglobin 28.6 PG (27.0-31.0) 28.5 PG (27.0-31.0) Mean Corpuscular Hemoglobin Concent 36.3 G/DL (32.0-36.0) H 36.3 G/DL (32.0-36.0) H Red Cell Distribution Width 13.1 % (11.6-14.8) 13.0 % (11.6-14.8) Platelet Count 323 K/UL (150-450) 303 K/UL (150-450) Mean Platelet Volume 6.2 FL (6.5-10.1) L 6.1 FL (6.5-10.1) L Neutrophils (%) (Auto) 63.5 % (45.0-75.0) 76.7 % (45.0-75.0) H Lymphocytes (%) (Auto) 25.8 % (20.0-45.0) 14.3 % (20.0-45.0) L Monocytes (%) (Auto) 7.1 % (1.0-10.0) 4.8 % (1.0-10.0) Eosinophils (%) (Auto) 0.8 % (0.0-3.0) 0.1 % (0.0-3.0) Basophils (%) (Auto) 2.8 % (0.0-2.0) H 4.2 % (0.0-2.0) H Sodium Level 139 MMOL/L (136-145) 137 MMOL/L (136-145) Potassium Level 2.4 MMOL/L (3.5-5.1) *L 3.1 MMOL/L (3.5-5.1) L Chloride Level 100 MMOL/L (98-107) 99 MMOL/L (98-107) Carbon Dioxide Level 22 MMOL/L (21-32) 23 MMOL/L (21-32) Anion Gap 16 mmol/L (5-15) H 15 mmol/L (5-15) Blood Urea Nitrogen 11 mg/dL (7-18) 8 mg/dL (7-18) Creatinine 0.9 MG/DL (0.55-1.30) 0.8 MG/DL (0.55-1.30) Estimat Glomerular Filtration Rate > 60 mL/min (>60) > 60 mL/min (>60) Glucose Level 165 MG/DL (74-106) H 152 MG/DL (74-106) H Calcium Level 9.7 MG/DL (8.5-10.1) 8.4 MG/DL (8.5-10.1) L Total Bilirubin 0.5 MG/DL (0.2-1.0) 0.4 MG/DL (0.2-1.0) Aspartate Amino Transf (AST/SGOT) 21 U/L (15-37) 21 U/L (15-37) Alanine Aminotransferase (ALT/SGPT) 25 U/L (12-78) 25 U/L (12-78) Alkaline Phosphatase 80 U/L (46-116) 78 U/L (46-116) Total Protein 7.8 G/DL (6.4-8.2) 7.8 G/DL (6.4-8.2) Albumin 4.2 G/DL (3.4-5.0) 4.0 G/DL (3.4-5.0) Globulin 3.6 g/dL 3.8 g/dL Albumin/Globulin Ratio 1.2 (1.0-2.7) 1.1 (1.0-2.7) Lipase 88 U/L (73-393) Urine Color Pale yellow Pale yellow Urine Appearance Clear Clear Urine pH 8 (4.5-8.0) 8 (4.5-8.0) Urine Specific [place] 1.015 (1.005-1.035) 1.010 (1.005-1.035) Urine Protein Negative (NEGATIVE) 1+ (NEGATIVE) H Urine Glucose (UA) Negative (NEGATIVE) Negative (NEGATIVE) Urine Ketones 3+ (NEGATIVE) H 4+ (NEGATIVE) H Urine Blood 2+ (NEGATIVE) H 3+ (NEGATIVE) H Urine Nitrite Negative (NEGATIVE) Negative (NEGATIVE) Urine Bilirubin Negative (NEGATIVE) Negative (NEGATIVE) Urine Urobilinogen Normal MG/DL (0.0-1.0) Normal MG/DL (0.0-1.0) Urine Leukocyte Esterase Negative (NEGATIVE) Negative (NEGATIVE) Urine RBC 2-4 /HPF (0 - 2) H 10-15 /HPF (0 - 2) H Urine WBC 0 /HPF (0 - 2) 0 /HPF (0 - 2) Urine Squamous Epithelial Cells Few /LPF (NONE/OCC) Occasional /LPF Urine Bacteria None /HPF (NONE) Few /HPF (NONE) Urine Opiates Screen Negative (NEGATIVE) Urine Barbiturates Screen Negative (NEGATIVE) Phencyclidine (PCP) Screen Negative (NEGATIVE) Urine Amphetamines Screen Negative (NEGATIVE) Urine Benzodiazepines Screen Negative (NEGATIVE) Urine Cocaine Screen Negative (NEGATIVE) Urine Marijuana (THC) Screen Positive (NEGATIVE) H Gómez Matamoros MD Dec 16, 2019 13:26
--- NOTE | 2019-12-16 14:55 | NUR ---
CASE MANAGEMENT: REVIEW 64 YEAR OLD FEMALE PRESENTED TO ED FROM HOME CC: N/V/D SI: HYPOKALEMIA . INTRACTABLE VOMITING T 98.2 HR 99 RR 24 BP 149/77 SAT 99% ROOM AIR TOX SCREEN: THC + IS: ATIVAN IV X1 BENTYL IM X1 MORPHINE IV X1 REGLAN IV X1 K-DUR PO X1 KCl 10MEQ IVF BOLUS X1 ZOFRAN IV X1 PATIENT ADMITTED TO TELEMETRY UNIT 12/16/2019 DCP: PATIENT IS FROM HOME
--- NOTE | 2019-12-16 15:21 | Cardiology Report ---
APPROVED REPORT EXAM: Two-dimensional and M-mode echocardiogram with Doppler and color Doppler. INDICATION Congestive Heart Failure M-Mode DIMENSIONS IVSd1.0 (0.7-1.1cm)Left Atrium (MM)3.6 (1.6-4.0cm) LVDd4.8 (3.5-5.6cm)Aortic Root3.2 (2.0-3.7cm) PWd1.0 (0.7-1.1cm)Aortic Cusp Exc.1.7 (1.5-2.0cm) IVSs1.7 cmEPSS0.6 (>1.0cm) LVDs3.1 (2.5-4.0cm) PWs1.6 cm Other Information <Conclusion> Technically difficult study due to pt's body habitus. Normal left ventricular chamber size, systolic function and wall motion to extent visualized. Left ventricular ejection fraction estimated to be 60 %. Study quality precludes accurate assessment of regional wall motion. No evidence of left ventricular hypertrophy. Anterior Echo-free space, may be due to pericardial fat or effusion. All other cardiac chamber sizes are within normal limits. Focal aortic valve sclerosis with adequate cusp excursion. Thickened mitral valve leaflets with normal excursion. Mitral annulus and aortic root calcification. Pulmonic valve not well visualized. Normal tricuspid valve structure. IVC at normal size with physiologic collapse. A color flow and spectral Doppler study was performed and revealed: No aortic regurgitation. Trace to mild mitral regurgitation. Mitral diastolic velocities suggest reduced left ventricular relaxation c/w mild LV diastolic dysfunction (Grade I ). Trace tricuspid regurgitation. Tricuspid systolic velocities suggests peak right ventricular systolic pressure of 12 mmHg. No pulmonic regurgitation present.
--- NOTE | 2019-12-16 15:39 | Cardiology Report ---
APPROVED REPORT EKG Measurement Heart [id number] <Conclusion> Normal sinus rhythm Nonspecific T wave abnormality Abnormal ECG
--- NOTE | 2019-12-16 18:00 | Consultation ---
DATE OF CONSULTATION: 12/16/2019 CARDIOLOGY CONSULTATION CONSULTING PHYSICIAN: Gómez Matamoros MD REFERRING PHYSICIAN: Maira Jacques MD REASON FOR CONSULTATION: Lower extremity edema, hypokalemia, and long QT. HISTORY OF PRESENT ILLNESS: The patient is a 64-year-old lady with history of lower extremity edema and congestive heart failure on Lasix, who was admitted with vomiting, diarrhea, and abdominal pain. The patient stated she ate prepackaged salad that she bought from store earlier and an hour later began to have sharp abdominal pain, vomiting, and diarrhea multiple times through the day. She denies any syncope or presyncope. The patient was admitted and Cardiology consultation was obtained for further evaluation and management. REVIEW OF SYSTEMS: Negative other than what is mentioned in history of present illness. PAST MEDICAL HISTORY: As mentioned above. FAMILY HISTORY: Noncontributory. SOCIAL HISTORY: She lives at home. She used to work at [employer] in the [employer] department. Does not smoke or drink alcohol. PHYSICAL EXAMINATION: VITAL SIGNS: Blood pressure is 108/57, pulse is 89, respirations 18, and temperature 96.7. HEAD AND NECK: Showed no JVD. LUNGS: Clear. CARDIOVASCULAR: Regular S1 and S2 with no gallop or murmur. ABDOMEN: Soft. EXTREMITIES: No pitting edema. LABORATORY AND DIAGNOSTIC DATA: White count 7.8, hemoglobin 13.1, hematocrit 35, and platelet count is 303,000. Sodium is 137, potassium is 2.4 improved to 3.1, BUN 8, creatinine 0.8. Urine-tox is positive for marijuana. ASSESSMENT AND PLAN: 1. Hypokalemia. This is likely due to combination of diarrhea and vomiting as well as Lasix that the patient was on as an outpatient. Potassium will be replaced IV. 2. Prolonged QT of 496 milliseconds with corrected QT, partially due to hypokalemia that will be corrected. 3. Lower extremity edema. After hypokalemia is corrected, we will start the patient on Lasix. We will get an echocardiogram for further evaluation. 4. Abdominal pain, nausea, and vomiting, likely food poisoning. Currently on IV fluids. Thank you very much for allowing me to participate in the care of this patient. Please do not hesitate to contact me for any questions regarding my evaluation. Gómez Matamoros M.D. DR: Jazmyne JOB#: [id number] CC:
--- NOTE | 2019-12-16 19:22 | NUR ---
NURSE HAND-OFF REPORT: Important Events on Shift:[In morning had 10/10 pain in abdomen and severe nausea. After dilauded .5,g and reglan 10mg pain disappeared as did nausea. She has been stable since then. 2 bags 10meq K given and hand contraction completely disappeared. ] Patient Status: [alert talkative ambulatory stable] Diet: [clear liquid] Pending Orders: [] Pending Results/Labs:[] Pending MD notification:[] Latest Vital Signs: Temperature 98.6 , Pulse 89 , B/P 133 /84 , Respiratory Rate 20 , O2 SAT 97 , Room Air, O2 Flow Rate . Vital Sign Comment: [1 episode of tachy and hypertension but it was when pain was 10/10, resolved after pain resolved] EKG Rhythm: Sinus Rhythm Rhythm change?: N MD Notified?: N - MD Response: Latest Ramos Fall Score: 20 Fall Risk: Low Risk Safety Measures: Call light Within Reach, Bed Alarm Zone 1, Side Rails Side Rails x2, Bed position Low and Locked. Fall Precautions: Patient Fall Education Report given to [Rachel ALVAREZ].
--- NOTE | 2019-12-16 19:30 | NUR ---
NURSE NOTES: Received report from KIM Sánchez. Patient is awake on bed, alert and oriented x 4. On clear liquid diet, instructed and amenable. On room air, sating 95% with no shortness of breath reported. desk monitor is in place, shows sinus rhythm with no chest pain reported. IV site is on right forearm g-20 running fluid of 1/2 NS + 20 meqs KCL @ 75 cc/hour that is patent and intact. Safety measures are in place, bed in lowest and locked position, side rails up x 2. Call light button and bedside table within reach, instructed to call for any assistance needed. Will continue plan of care.
--- NOTE | 2019-12-16 20:00 | Consultation ---
DATE OF CONSULTATION: 12/16/2019 INFECTIOUS DISEASE CONSULTATION CONSULTING PHYSICIAN: Romain Loyola MD PRIMARY ATTENDING PHYSICIAN: Maira Jacques MD REASON FOR CONSULT: Gastroenteritis. HISTORY OF PRESENT ILLNESS: This is a 64-year-old female admitted today from home complaining of nausea, vomiting, abdominal pain, and diarrhea. The patient's symptoms started 2 days ago a couple of hours after taking salad that was purchased from a store and yesterday had a lot of nausea and vomiting, and also had watery diarrhea. PAST MEDICAL HISTORY: According to ER doctor, she had CHF and taking Lasix. ALLERGIES: No known drug allergy. MEDICATIONS: Famotidine, potassium chloride, hydromorphone, Tylenol, and Zofran. SOCIAL HISTORY: Single and has 2 grown-up kids. Denies alcohol, drug abuse, or smoking. REVIEW OF SYSTEMS: Currently feels much better, has no fever, no chills, no coughing, has no nausea, no vomiting, and started on liquid diet, has no abdominal pain, has watery diarrhea. PHYSICAL EXAMINATION: VITAL SIGNS: Temperature 96.7, pulse 89, blood pressure 108/57. GENERAL APPEARANCE: Seems to be obese. HEAD AND NECK: [place]ham conjunctivae. HEART: Normal rate. LUNGS: Clear. ABDOMEN: Obese, soft, nontender. EXTREMITIES: No edema. LABORATORY AND DIAGNOSTIC DATA: WBC 7.8, hemoglobin 13, hematocrit 35.7, and platelets 203,000. Sodium 137, potassium 3.1. Potassium at the time of admission was 2.4, chloride 99, BUN 8, creatinine 0.8, glucose 152. Urine toxicology was positive for THC. UA showed rbc's 10-15, ketones 4+, blood 3+. Echocardiogram showed ejection fraction of 65%. IMPRESSION: Gastroenteritis with nausea, vomiting, and diarrhea. The patient has had hypokalemia, has cannabinoid abuse, and may have cannabinoid hyperemesis syndrome, and has diastolic CHF. RECOMMENDATION: Continue hydration and potassium replacement. Observe off antibiotic. We will follow up urine culture. At the end of my exam, I thank Dr. Jacques for involving me in the care of this patient. Romain Loyola M.D. DR: HERBERT JOB#: [id number] CC: JOSE MIGUEL
--- NOTE | 2019-12-16 21:44 | History and Physical Report ---
DATE OF ADMISSION: 12/16/2019 HISTORY OF PRESENT ILLNESS: Patient states all of her symptoms started after she ate a salad that was brought from [employer]. Patient complained of dizziness, vomiting, abdominal pain, and diarrhea for 2 days and weakness, paresthesias, and cramps on both hands as well. Patient denies hematemesis. Denies constipation. Does have some abdominal pain for 2 days and muscle cramping nature. Patient admitted for gastroenteritis as well as severe hypokalemia. Does have some abnormalities on EKG as well. IV potassium is given. Patient denies nausea, vomiting, or diarrhea. Denies fever or chills. Denies shortness of breath. Denies cough. PAST MEDICAL HISTORY: Significant for GERD, history of CHF, fibroids, constipation as well. PAST SURGICAL HISTORY: , tubal ligation, status post colon biopsy. SOCIAL HISTORY: Denies history of smoking. Denies history of marijuana use. Denies history of alcohol abuse. ALLERGIES: No known allergies. MEDICATIONS: Cannot tell me the name of the medications at this point of time. FAMILY HISTORY: Noncontributory. REVIEW OF SYSTEMS: HEENT: Denies headache. RESPIRATORY: Denies shortness of breath. Denies cough. CARDIOVASCULAR: Denies chest pain. Denies orthopnea. GASTROINTESTINAL: Reports vomiting, abdominal pain, diarrhea for 2 days. Denies melena. EXTREMITIES: Denies pain in lower extremity. Does have paresthesia and cramps on both hands. CENTRAL NERVOUS SYSTEM: Denies change in speech pattern. Feels somewhat weak. PHYSICAL EXAMINATION: VITAL SIGNS: Temperature is 96.7, pulse is 89, blood pressure 108/67. HEENT: PERRLA. NECK: Supple. No lymphadenopathy. CHEST: Clear to auscultation. CARDIOVASCULAR: Regular rate and rhythm. No murmurs or extra sounds. GASTROINTESTINAL: Soft, nontender, nondistended. No organomegaly. EXTREMITIES: No edema. Moves all four extremities. Sensory intact to light touch. Patient moves all 4 extremities. LABORATORY DATA: WBC of 7.8, hemoglobin of 13.3, platelets 323. Sodium 139, potassium of 2.4, BUN of 11, creatinine 0.9, glucose of 165. ASSESSMENT AND PLAN: Severe hypokalemia, vomiting, abdominal cramps, diarrhea, rule out gastroenteritis. Paresthesias and cramps of both hand are most likely due to hypokalemia. Patient is going to need IV potassium. I have consulted Dr. Rivas, Dr. Matamoros, Dr. Romain Loyola, Dr. Ozuna, and Dr. Roy for pain management as well as for the management of the abdominal pain and vomiting and see what is causing it and also to replace potassium. For abnormal EKG, I have consulted Dr. Matamoros. For any antibiotic if needed, will be deferred to Dr. Romain Loyola. Maira Jacques M.D. DR: FRANCI JOB#: [id number] CC:
--- NOTE | 2019-12-16 22:30 | Consultation ---
DATE OF CONSULTATION: 12/16/2019 GASTROENTEROLOGY CONSULTATION REPORT CONSULTING PHYSICIAN: Kvng Ozuna MD. CHIEF COMPLAINT: I was asked to see this patient by Dr. Maira Jacques for evaluation of gastrointestinal symptoms. HISTORY OF PRESENT ILLNESS: Patient is a pleasant 64-year-old woman with a 2-day history of nausea and vomiting, which brought her to the hospital for admission. The patient complains of having multiple episodes of nausea and vomiting approximately 2 times a day and also 4 to 5 times a day episodes of diarrhea and this occurred for 2 days prior to admission where she found herself dehydrated and came to the emergency room where she was admitted. She denies any abdominal pain. No fevers or chills, and she has no contacts with the same symptoms. She feels somewhat better today after overnight rest and hydration. PAST MEDICAL HISTORY: History of lymphedema. FAMILY HISTORY: Positive for prostate cancer in the father. SOCIAL HISTORY: Patient is single. She has 2 children. She does not smoke. She does not drink. She does use marijuana. MEDICATIONS: The patient is on a diuretic, but she does not know the name. REVIEW OF SYSTEMS: Otherwise negative. PHYSICAL EXAMINATION: GENERAL: Earnest woman, seen in her room, in no distress. HEENT: Normocephalic and atraumatic. Sclerae anicteric. Oropharynx clear. NECK: Supple. CHEST: Clear to auscultation. CARDIOVASCULAR: Revealed a regular rate. ABDOMEN: Soft. Good bowel sounds. There is no organomegaly. EXTREMITIES: Revealed no edema. LABORATORY DATA: Noted. ASSESSMENT: This patient presents with acute syndrome of nausea, vomiting, and diarrhea consistent with gastroenteritis, which is typical viral. She already feels better today, which is typically a hallmark of viral gastroenteritis. I would manage her conservatively with supportive IV fluids and advance diet as tolerated. Should her symptoms continue to improve, then she can be a discharge candidate and if persists, then further workup may be necessary. Stool cultures can be checked and patient will be followed closely. RECOMMENDATIONS: Per above discussion and per orders written in the chart. Thank you for asking me to participate in the care of this patient. Kvng Ozuna M.D. DR: NETTA JOB#: [id number] CC:
[2019-12-16] MEDS: Zolpidem 5mg tab ORAL PRN (22:31)
[2019-12-17] VITALS: BP 123/65
--- NOTE | 2019-12-17 02:30 | Consultation ---
DATE OF CONSULTATION: 12/16/2019 PAIN MANAGEMENT CONSULTATION CONSULTING PHYSICIAN: Dodie Roy M.D. REFERRING PHYSICIAN: Maira Jacques M.D. PHYSICIAN TECHNOLOGY LAB TEACHER: Aleksandr Flowers CHIEF COMPLAINT: Abdominal pain. HISTORY OF PRESENT ILLNESS: This is a 64-year-old female who has been seen on the telemetry floor of [facility] for initial pain management consultation. The patient was admitted under the care of Dr. Jacques with chief complaint of abdominal pain, nausea, and vomiting. Describes the pain cramping, aching pain, increasing with eating, and reduced with medication. She was started on Dilaudid 0.5 mg IV q4h pain. Urine toxicology was performed and the patient was positive for marijuana, which the patient is taking. PAST MEDICAL HISTORY: peripheral vascular disease. PAST SURGICAL HISTORY: Denies. SOCIAL HISTORY: Smokes marijuana. ALLERGIES: No known drug allergies. MEDICATIONS: Denies taking medications as an outpatient. REVIEW OF SYSTEMS: Denies rash, fever, chills. PHYSICAL EXAMINATION: GENERAL: Alert, awake, and oriented. VITAL SIGNS: Blood pressure 144/73, heart rate 75, oxygen saturation 100% HEENT: PERRLA. NECK: Range of motion is full in all directions. No tenderness to paracervical muscles. No adenopathy. LUNGS: Decreased breath sounds bilaterally. HEART: S1 and S2 regular. ABDOMEN: Obese. BACK: Range of motion is normal in flexion and extension. EXTREMITIES: Upper and lower extremity range of motion is full in all directions. No cyanosis. No clubbing. No edema. Sensory is intact. Reflexes are not obtainable. No adenopathy. ASSESSMENT/PLAN: A 64-year-old female with abdominal pain, cannabinoid hyperemesis syndrome. The patient Dilaudid as needed. The patient was discussed with Dr. Roy and he concurred. Thank you very much for the courtesy of this consultation. XIOMARA Flowers Dodie Roy M.D. DR: JUAN FRANCISCO JOB#: [id number] CC: JOSE MIGUEL
[2019-12-17 04:00] VITALS: BP 139/78
--- NOTE | 2019-12-17 07:22 | NUR ---
NURSE HAND-OFF REPORT: Important Events on Shift: Patient had another episode of diarrhea, specimen collected and sent to laboratory for C. Diff. Patient Status: Patient is asleep in stable condition, plan of care endorsed. Diet: clear liquid diet Pending Orders: Pending Results/Labs: Pending MD notification: Latest Vital Signs: Temperature 99.0 , Pulse 71 , B/P 139 /78 , Respiratory Rate 20 , O2 SAT 100 , Room Air, O2 Flow Rate . Vital Sign Comment: stable EKG Rhythm: Sinus Rhythm Rhythm change?: N MD Notified?: N - MD Response: Latest Ramos Fall Score: 20 Fall Risk: Low Risk Safety Measures: Call light Within Reach, Bed Alarm Zone 1, Side Rails Side Rails x2, Bed position Low and Locked. Fall Precautions: Patient Fall Education Report given to KIM Banerjee.
[2019-12-17 07:24] LABS: BASOPHILS % (AUTO) 1.7 % (0.0-2.0); HEMATOCRIT 34.9 % (37.0-47.0); HEMOGLOBIN 12.8 G/DL (12.0-16.0); MEAN CORPUSCULAR VOLUME 79 FL (80-99); MONOCYTES % (AUTO) 10.5 % (1.0-10.0); NEUTROPHILS % (AUTO) 49.8 % (45.0-75.0); PLATELET COUNT 314 K/UL (150-450); RED CELL DISTRIBUTION WIDTH 13.1 % (11.6-14.8); WHITE BLOOD COUNT 7.3 K/UL (4.8-10.8)
[2019-12-17 08:00] VITALS: BP 124/66
[2019-12-17 08:01] LABS: ALANINE AMINOTRANSFERASE 25 U/L (12-78); ALBUMIN 3.8 G/DL (3.4-5.0); ALBUMIN/GLOBULIN RATIO 1.1 (1.0-2.7); ALKALINE PHOSPHATASE 70 U/L (46-116); ANION GAP 13 mmol/L (5-15); ASPARTATE AMINO TRANSFERASE 23 U/L (15-37); BILIRUBIN,TOTAL 0.6 MG/DL (0.2-1.0); BLOOD UREA NITROGEN 10 mg/dL (7-18); CALCIUM 8.3 MG/DL (8.5-10.1); CARBON DIOXIDE 23 MMOL/L (21-32); CHLORIDE 104 MMOL/L (98-107); CHOLESTEROL 208 MG/DL (< 200); CREATININE 0.9 MG/DL (0.55-1.30); FERRITIN 37 NG/ML (8-388); HDL CHOLESTEROL 56 MG/DL (40-60); PHOSPHORUS 3.4 MG/DL (2.5-4.9); POTASSIUM 3.2 MMOL/L (3.5-5.1); SODIUM 140 MMOL/L (136-145); TRIGLYCERIDES 96 MG/DL (30-150)
[2019-12-17 08:42] LABS: % IRON SATURATION 28 % (15-50); IRON 102 ug/dL (50-175); TOTAL IRON BINDING CAPACITY 362 ug/dL (250-450)
--- NOTE | 2019-12-17 09:58 | General Progress Note ---
Subjective Allergies: Coded Allergies: No Known Allergies (Unverified , 10/17/18) Subjective Feels better tolerating PO diet advanced Objective Last 24 Hour Vital Signs Date Time Temp Pulse Resp B/P (MAP) Pulse Ox O2 Delivery O2 Flow Rate FiO2 12/17/19 09:04 Room Air 12/17/19 08:00 98.2 77 20 124/66 (85) 97 12/17/19 07:29 77 12/17/19 04:00 76 12/17/19 04:00 99.0 71 20 139/78 (98) 100 12/17/19 00:00 84 12/17/19 00:00 98.8 84 20 123/65 (84) 100 12/16/19 21:00 Room Air 12/16/19 20:00 91 12/16/19 20:00 98.2 83 20 138/64 (88) 97 12/16/19 18:36 98.6 12/16/19 16:00 98.6 68 20 133/84 (100) 97 12/16/19 16:00 89 12/16/19 12:00 88 12/16/19 12:00 96.7 89 19 108/57 (74) 98 Intake and Output 12/16/19 12/17/19 18:59 06:59 Intake Total 140 ml 950 ml Balance 140 ml 950 ml Intake Oral 140 ml 500 ml IV Total 450 ml # Voids 3 # Bowel Movements 1 Laboratory Tests 12/17/19 06:49: White Blood Count 7.3, Red Blood Count 4.40, Hemoglobin 12.8, Hematocrit 34.9L, Mean Corpuscular Volume 79L, Mean Corpuscular Hemoglobin 29.1, Mean Corpuscular Hemoglobin Concent 36.7H, Red Cell Distribution Width 13.1, Platelet Count 314, Mean Platelet Volume 6.2L, Neutrophils (%) (Auto) 49.8, Lymphocytes (%) (Auto) 33.0, Monocytes (%) (Auto) 10.5H, Eosinophils (%) (Auto) 5.0H, Basophils (%) (Auto) 1.7, Sodium Level 140, Potassium Level 3.2L, Chloride Level 104, Carbon Dioxide Level 23, Anion Gap 13, Blood Urea Nitrogen 10, Creatinine 0.9, Estimat Glomerular Filtration Rate > 60, Glucose Level 119H, Hemoglobin A1c 6.3H, Uric Acid 4.4, Calcium Level 8.3L, Phosphorus Level 3.4, Magnesium Level 1.9, Iron Level 102, Total Iron Binding Capacity 362, Percent Iron Saturation 28, Unsaturated Iron Binding 260, Ferritin 37, Total Bilirubin 0.6, Aspartate Amino Transf (AST/SGOT) 23, Alanine Aminotransferase (ALT/SGPT) 25, Alkaline P hosphatase 70, Troponin I 0.000, C-Reactive Protein, Quantitative < 0.4, Pro-B-Type Natriuretic Peptide 57, Total Protein 7.2, Albumin 3.8, Globulin 3.4, Albumin/Globulin Ratio 1.1, Triglycerides Level 96, Cholesterol Level 208H, LDL Cholesterol 133H, HDL Cholesterol 56, Cholesterol/HDL Ratio 3.7, Vitamin B12 Level 601, Folate 37.8, Thyroid Stimulating Hormone (TSH) 1.219, Free Thyroxine 1.03 Height (Feet): 4 Height (Inches): 11.00 Weight (Pounds): 175 Objective WDWN NCAT supple CTA RRRR abd soft ND no edema Assessment/Plan Assessment/Plan: Assessment N/V Diarrhea likely viral gastroenteritis Recommendations IVF advance diet d/c planning per PMD Kvng Ozuna MD Dec 17, 2019 09:58
--- NOTE | 2019-12-17 10:00 | General Progress Note ---
Subjective Date patient seen: Dec 17, 2019 Time patient seen: 08:30 - am Constitutional: Reports: no symptoms HEENT: Reports: no symptoms Cardiovascular: Reports: no symptoms Respiratory: Reports: no symptoms Gastrointestinal/Abdominal: Reports: no symptoms Genitourinary: Reports: no symptoms Neurologic/Psychiatric: Reports: no symptoms Endocrine: Reports: no symptoms Hematologic/Lymphatic: Reports: no symptoms Allergies: Coded Allergies: No Known Allergies (Unverified , 10/17/18) Subjective HISTORY OF PRESENT ILLNESS: This is a 64-year-old female who has been seen on the telemetry floor of [facility]. Patient is in bed doing better, denies pain and has no new complaints at this time Objective Last 24 Hour Vital Signs Date Time Temp Pulse Resp B/P (MAP) Pulse Ox O2 Delivery O2 Flow Rate FiO2 12/17/19 09:04 Room Air 12/17/19 08:00 98.2 77 20 124/66 (85) 97 12/17/19 07:29 77 12/17/19 04:00 76 12/17/19 04:00 99.0 71 20 139/78 (98) 100 12/17/19 00:00 84 12/17/19 00:00 98.8 84 20 123/65 (84) 100 12/16/19 21:00 Room Air 12/16/19 20:00 91 12/16/19 20:00 98.2 83 20 138/64 (88) 97 12/16/19 18:36 98.6 12/16/19 16:00 98.6 68 20 133/84 (100) 97 12/16/19 16:00 89 12/16/19 12:00 88 12/16/19 12:00 96.7 89 19 108/57 (74) 98 Intake and Output 12/16/19 12/17/19 18:59 06:59 Intake Total 140 ml 950 ml Balance 140 ml 950 ml Intake Oral 140 ml 500 ml IV Total 450 ml # Voids 3 # Bowel Movements 1 Laboratory Tests 12/17/19 06:49: White Blood Count 7.3, Red Blood Count 4.40, Hemoglobin 12.8, Hematocrit 34.9L, Mean Corpuscular Volume 79L, Mean Corpuscular Hemoglobin 29.1, Mean Corpuscular Hemoglobin Concent 36.7H, Red Cell Distribution Width 13.1, Platelet Count 314, Mean Platelet Volume 6.2L, Neutrophils (%) (Auto) 49.8, Lymphocytes (%) (Auto) 33.0, Monocytes (%) (Auto) 10.5H, Eosinophils (%) (Auto) 5.0H, Basophils (%) (Auto) 1.7, Sodium Level 140, Potassium Level 3.2L, Chloride Level 104, Carbon Dioxide Level 23, Anion Gap 13, Blood Urea Nitrogen 10, Creatinine 0.9, Estimat Glomerular Filtration Rate > 60, Glucose Level 119H, Hemoglobin A1c 6.3H, Uric Acid 4.4, Calcium Level 8.3L, Phosphorus Level 3.4, Magnesium Level 1.9, Iron Level 102, Total Iron Binding Capacity 362, Percent Iron Saturation 28, Unsaturated Iron Binding 260, Ferritin 37, Total Bilirubin 0.6, Aspartate Amino Transf (AST/SGOT) 23, Alanine Aminotransferase (ALT/SGPT) 25, Alkaline Phosphatase 70, Troponin I 0.000, C-Reactive Protein, Quantitative < 0.4, Pro-B-Type Natriuretic Peptide 57, Total Protein 7.2, Albumin 3.8, Globulin 3.4, Albumin/Globulin Ratio 1.1, Triglycerides Level 96, Cholesterol Level 208H, LDL Cholesterol 133H, HDL Cholesterol 56, Cholesterol/HDL Ratio 3.7, Vitamin B12 Level 601, Folate 37.8, Thyroid Stimulating Hormone (TSH) 1.219, Free Thyroxine 1.03 Height (Feet): 4 Height (Inches): 11.00 Weight (Pounds): 175 General Appearance: alert EENT: PERRL/EOMI Neck: non-tender Cardiovascular: normal rate Respiratory/Chest: lungs clear Abdomen: non tender, soft Extremities: non-tender Edema: trace edema Neurologic: alert, oriented x 3 Skin: warm/dry Assessment/Plan Assessment/Plan: (1) Abdominal pain (2) Cannabinoid Hyperemesis Syndrome Patient to be continued on Tylenol We will discontinue Dilaudid D/w Dr. Roy and he concurred. Chris Ferrera Dec 17, 2019 10:00
--- NOTE | 2019-12-17 10:37 | NUR ---
*-*DISCHARGE PLANNING*-* PATIENT HAS BEEN REFERRED TO: [facility] P: [phone]
--- NOTE | 2019-12-17 11:02 | NUR ---
*-*DISCHARGE PLAN*-* PATIENT HAS BEEN ACCEPTED WITH: [facility] P: [phone] S/W BAL, WILL SERVICE PATIENT UPON DISCHARGE.
--- NOTE | 2019-12-17 11:05 | NUR ---
NURSE NOTES: During AM rounding the pt was oriented x4 calm and cooperative, expressed Nauseousness and medication was given, she also stated she had a water stool episode, IV intact and fluids running, pt is ambulatory with steady gait, denies pain, no SOB or distress noted.
--- NOTE | 2019-12-17 11:45 | NUR ---
NURSE NOTES: Received report from KIM Banerjee (Telemetry). Patient arrived on unit via gurney alert, awake, and oriented x4. Observed to be lying in bed with HOB elevated, currently on room air, no s/sx of SOB/Distress. No c/o any pain or discomfort. IV site observed to be on RAC running 1/2 NS with 20 mEq of KCL at 50 cc. Asymptomatic, inplace and intact. Bed placed on lowest and locked call light placed within reach and will continue to monitor. All patient's belongings checked and accounted for. Patient in stable condition.
[2019-12-17 12:00] VITALS: BP 144/88
[2019-12-17] MEDS: NS w/KCl 20mEq 1000ml 1,000 ML IV SCH (12:16)
--- NOTE | 2019-12-17 12:50 | Nephrology Progress Note ---
Assessment/Plan Problem List: (1) Hypokalemia (2) Nausea, vomiting, and diarrhea (3) Abdominal pain (4) Electrolyte imbalance (5) Cannabis abuse Assessment Hypokalemia most likely due to diarrhea GI pathology: Nausea vomiting diarrhea, possible gastroenteritis History of CHF, on Lasix Cannabis abuse Plan Potassium supplements PO & IV as needed 2D echocardiogram : Left ventricular ejection fraction estimated to be 60 %. Per GI advice Monitor electrolytes and renal parameters Check urine for tox screen, positive for cannabis Subjective ROS Limited/Unobtainable: No Constitutional: Reports: malaise Objective Objective Last 24 Hour Vital Signs Date Time Temp Pulse Resp B/P (MAP) Pulse Ox O2 Delivery O2 Flow Rate FiO2 12/17/19 12:00 98.8 80 19 144/88 (106) 99 12/17/19 09:04 Room Air 12/17/19 08:00 98.2 77 20 124/66 (85) 97 12/17/19 07:29 77 12/17/19 04:00 76 12/17/19 04:00 99.0 71 20 139/78 (98) 100 12/17/19 00:00 84 12/17/19 00:00 98.8 84 20 123/65 (84) 100 12/16/19 21:00 Room Air 12/16/19 20:00 91 12/16/19 20:00 98.2 83 20 138/64 (88) 97 12/16/19 18:36 98.6 12/16/19 16:00 98.6 68 20 133/84 (100) 97 12/16/19 16:00 89 Intake and Output 12/16/19 12/17/19 19:00 07:00 Intake Total 190 ml 900 ml Balance 190 ml 900 ml Intake Oral 140 ml 500 ml IV Total 50 ml 400 ml # Voids 3 # Bowel Movements 1 Laboratory Tests 12/17/19 06:49: White Blood Count 7.3, Red Blood Count 4.40, Hemoglobin 12.8, Hematocrit 34.9L, Mean Corpuscular Volume 79L, Mean Corpuscular Hemoglobin 29.1, Mean Corpuscular Hemoglobin Concent 36.7H, Red Cell Distribution Width 13.1, Platelet Count 314, Mean Platelet Volume 6.2L, Neutrophils (%) (Auto) 49.8, Lymphocytes (%) (Auto) 33.0, Monocytes (%) (Auto) 10.5H, Eosinophils (%) (Auto) 5.0H, Basophils (%) (Auto) 1.7, Sodium Level 140, Potassium Level 3.2L, Chloride Level 104, Carbon Dioxide Level 23, Anion Gap 13, Blood Urea Nitrogen 10, Creatinine 0.9, Estimat Glomerular Filtration Rate > 60, Glucose Level 119H, Hemoglobin A1c 6.3H, Uric Acid 4.4, Calcium Level 8.3L, Phosphorus Level 3.4, Magnesium Level 1.9, Iron Level 102, Total Iron Binding Capacity 362, Percent Iron Saturation 28, Unsaturated Iron Binding 260, Ferritin 37, Total Bilirubin 0.6, Aspartate Amino Transf (AST/SGOT) 23, Alanine Aminotransferase (ALT/SGPT) 25, Alkaline Phosphatase 70, Troponin I 0.000, C-Reactive Protein, Quantitative < 0.4, Pro-B-Type Natriuretic Peptide 57, Total Protein 7.2, Albumin 3.8, Globulin 3.4, Albumin/Globulin Ratio 1.1, Triglycerides Level 96, Cholesterol Level 208H, LDL Cholesterol 133H, HDL Cholesterol 56, Cholesterol/HDL Ratio 3.7, Vitamin B12 Level 601, Folate 37.8, Thyroid Stimulating Hormone (TSH) 1.219, Free Thyroxine 1.03 Height (Feet): 4 Height (Inches): 11.00 Weight (Pounds): 175 General Appearance: no apparent distress Cardiovascular: normal rate Respiratory/Chest: decreased breath sounds Abdomen: soft Objective No change Jimbo Rivas MD Dec 17, 2019 12:50
--- NOTE | 2019-12-17 14:25 | NUR ---
[employer]S [employer] PARTS ATTENDANT NOTE SW met w/pt to discuss substance abuse issue. Pt presents as A&O4x and cooperative. PT resides w/ her daughter at [address] [place] [address]. UDS positive for THC. PT admits recreational THC abuse to relax at night. Pt reports she will be able to quit smoking THC without participating rehab program. PT informed this SW that she discussed the potential risks of THC abuse w/ . PT declined counseling/tx intervention/substance abuse rehab resource. PT did not share any social media director concerns/needs at this time. Emergency contacts: Melodie Donnelly (daughter) [phone] Kareem Villanueva (son) [phone]
--- NOTE | 2019-12-17 15:09 | Cardiac Electrophysiology PN ---
Assessment/Plan Assessment/Plan 1. Hypokalemia. This is likely due to combination of diarrhea and vomiting as well as Lasix that the patient was on as an outpatient. Potassium replaced IV. 2. Prolonged QT of 496 milliseconds with corrected QT, partially due to hypokalemia that will be corrected. 3. Lower extremity edema. Echo pending 4. Abdominal pain, nausea, and vomiting, likely food poisoning. Currently on IV fluids. Subjective Subjective Feeling better. No CP or SOB Objective Last 24 Hour Vital Signs Date Time Temp Pulse Resp B/P (MAP) Pulse Ox O2 Delivery O2 Flow Rate FiO2 12/17/19 12:00 98.8 80 19 144/88 (106) 99 12/17/19 09:04 Room Air 12/17/19 08:00 98.2 77 20 124/66 (85) 97 12/17/19 07:29 77 12/17/19 04:00 76 12/17/19 04:00 99.0 71 20 139/78 (98) 100 12/17/19 00:00 84 12/17/19 00:00 98.8 84 20 123/65 (84) 100 12/16/19 21:00 Room Air 12/16/19 20:00 91 12/16/19 20:00 98.2 83 20 138/64 (88) 97 12/16/19 18:36 98.6 12/16/19 16:00 98.6 68 20 133/84 (100) 97 12/16/19 16:00 89 Intake and Output 12/16/19 12/17/19 19:00 07:00 Intake Total 190 ml 900 ml Balance 190 ml 900 ml Intake Oral 140 ml 500 ml IV Total 50 ml 400 ml # Voids 3 # Bowel Movements 1 Laboratory Tests Test 12/17/19 06:49 White Blood Count 7.3 K/UL (4.8-10.8) Red Blood Count 4.40 M/UL (4.20-5.40) Hemoglobin 12.8 G/DL (12.0-16.0) Hematocrit 34.9 % (37.0-47.0) L Mean Corpuscular Volume 79 FL (80-99) L Mean Corpuscular Hemoglobin 29.1 PG (27.0-31.0) Mean Corpuscular Hemoglobin Concent 36.7 G/DL (32.0-36.0) H Red Cell Distribution Width 13.1 % (11.6-14.8) Platelet Count 314 K/UL (150-450) Mean Platelet Volume 6.2 FL (6.5-10.1) L Neutrophils (%) (Auto) 49.8 % (45.0-75.0) Lymphocytes (%) (Auto) 33.0 % (20.0-45.0) Monocytes (%) (Auto) 10.5 % (1.0-10.0) H Eosinophils (%) (Auto) 5.0 % (0.0-3.0) H Basophils (%) (Auto) 1.7 % (0.0-2.0) Sodium Level 140 MMOL/L (136-145) Potassium Level 3.2 MMOL/L (3.5-5.1) L Chloride Level 104 MMOL/L (98-107) Carbon Dioxide Level 23 MMOL/L (21-32) Anion Gap 13 mmol/L (5-15) Blood Urea Nitrogen 10 mg/dL (7-18) Creatinine 0.9 MG/DL (0.55-1.30) Estimat Glomerular Filtration Rate > 60 mL/min (>60) Glucose Level 119 MG/DL (74-106) H Hemoglobin A1c 6.3 % (4.3-6.0) H Uric Acid 4.4 MG/DL (2.6-7.2) Calcium Level 8.3 MG/DL (8.5-10.1) L Phosphorus Level 3.4 MG/DL (2.5-4.9) Magnesium Level 1.9 MG/DL (1.8-2.4) Iron Level 102 ug/dL (50-175) Total Iron Binding Capacity 362 ug/dL (250-450) Percent Iron Saturation 28 % (15-50) Unsaturated Iron Binding 260 ug/dL (112-346) Ferritin 37 NG/ML (8-388) Total Bilirubin 0.6 MG/DL (0.2-1.0) Aspartate Amino Transf (AST/SGOT) 23 U/L (15-37) Alanine Aminotransferase (ALT/SGPT) 25 U/L (12-78) Alkaline Phosphatase 70 U/L (46-116) Troponin I 0.000 ng/mL (0.000-0.056) C-Reactive Protein, Quantitative < 0.4 mg/dL (0.00-0.90) Pro-B-Type Natriuretic Peptide 57 pg/mL (0-125) Total Protein 7.2 G/DL (6.4-8.2) Albumin 3.8 G/DL (3.4-5.0) Globulin 3.4 g/dL Albumin/Globulin Ratio 1.1 (1.0-2.7) Triglycerides Level 96 MG/DL (30-150) Cholesterol Level 208 MG/DL (< 200) H LDL Cholesterol 133 mg/dL (<100) H HDL Cholesterol 56 MG/DL (40-60) Cholesterol/HDL Ratio 3.7 (3.3-4.4) Vitamin B12 Level 601 PG/ML (193-986) Folate 37.8 NG/ML (8.6-58.9) Thyroid Stimulating Hormone (TSH) 1.219 uiU/mL (0.358-3.740) Free Thyroxine 1.03 NG/DL (0.76-1.46) Microbiology Date/Time Source Procedure Growth Status 12/16/19 09:40 Urine,Clean Catch Urine Culture - Preliminary NO GROWTH Resulted Objective HEAD AND NECK: No JVD. LUNGS: Clear. CARDIOVASCULAR: Regular S1 and S2 with no gallop or murmur. ABDOMEN: Soft. EXTREMITIES: No pitting edema. Gómez Matamoros MD Dec 17, 2019 15:09
--- NOTE | 2019-12-17 15:28 | Infectious Diseases Prog Note ---
Assessment/Plan Assessment/Plan IMPRESSION: Gastroenteritis with nausea, vomiting, and diarrhea. hypokalemia, Cannabinoid abuse, cannabinoid hyperemesis syndrome, Diastolic CHF. RECOMMENDATION: Continue hydration and potassium replacement. Observe off antibiotic. Subjective ROS Limited/Unobtainable: No Constitutional: Reports: no symptoms Respiratory: Reports: no symptoms Gastrointestinal/Abdominal: Reports: diarrhea; Denies: nausea, vomiting Genitourinary: Reports: no symptoms Allergies: Coded Allergies: No Known Allergies (Unverified , 10/17/18) Objective Last 24 Hour Vital Signs Date Time Temp Pulse Resp B/P (MAP) Pulse Ox O2 Delivery O2 Flow Rate FiO2 12/17/19 12:00 98.8 80 19 144/88 (106) 99 12/17/19 09:04 Room Air 12/17/19 08:00 98.2 77 20 124/66 (85) 97 12/17/19 07:29 77 12/17/19 04:00 76 12/17/19 04:00 99.0 71 20 139/78 (98) 100 12/17/19 00:00 84 12/17/19 00:00 98.8 84 20 123/65 (84) 100 12/16/19 21:00 Room Air 12/16/19 20:00 91 12/16/19 20:00 98.2 83 20 138/64 (88) 97 12/16/19 18:36 98.6 12/16/19 16:00 98.6 68 20 133/84 (100) 97 12/16/19 16:00 89 Height (Feet): 4 Height (Inches): 11.00 Weight (Pounds): 175 General Appearance: no acute distress HEENT: mucous membranes moist Respiratory/Chest: lungs clear Cardiovascular: normal rate Abdomen: soft, non tender Extremities: no edema Neurologic/Psychiatric: alert, oriented x 3, responsive Microbiology Date/Time Source Procedure Growth Status 12/16/19 09:40 Urine,Clean Catch Urine Culture - Preliminary NO GROWTH Resulted Laboratory Tests Test 12/17/19 06:49 White Blood Count 7.3 K/UL (4.8-10.8) Red Blood Count 4.40 M/UL (4.20-5.40) Hemoglobin 12.8 G/DL (12.0-16.0) Hematocrit 34.9 % (37.0-47.0) L Mean Corpuscular Volume 79 FL (80-99) L Mean Corpuscular Hemoglobin 29.1 PG (27.0-31.0) Mean Corpuscular Hemoglobin Concent 36.7 G/DL (32.0-36.0) H Red Cell Distribution Width 13.1 % (11.6-14.8) Platelet Count 314 K/UL (150-450) Mean Platelet Volume 6.2 FL (6.5-10.1) L Neutrophils (%) (Auto) 49.8 % (45.0-75.0) Lymphocytes (%) (Auto) 33.0 % (20.0-45.0) Monocytes (%) (Auto) 10.5 % (1.0-10.0) H Eosinophils (%) (Auto) 5.0 % (0.0-3.0) H Basophils (%) (Auto) 1.7 % (0.0-2.0) Sodium Level 140 MMOL/L (136-145) Potassium Level 3.2 MMOL/L (3.5-5.1) L Chloride Level 104 MMOL/L (98-107) Carbon Dioxide Level 23 MMOL/L (21-32) Anion Gap 13 mmol/L (5-15) Blood Urea Nitrogen 10 mg/dL (7-18) Creatinine 0.9 MG/DL (0.55-1.30) Estimat Glomerular Filtration Rate > 60 mL/min (>60) Glucose Level 119 MG/DL (74-106) H Hemoglobin A1c 6.3 % (4.3-6.0) H Uric Acid 4.4 MG/DL (2.6-7.2) Calcium Level 8.3 MG/DL (8.5-10.1) L Phosphorus Level 3.4 MG/DL (2.5-4.9) Magnesium Level 1.9 MG/DL (1.8-2.4) Iron Level 102 ug/dL (50-175) Total Iron Binding Capacity 362 ug/dL (250-450) Percent Iron Saturation 28 % (15-50) Unsaturated Iron Binding 260 ug/dL (112-346) Ferritin 37 NG/ML (8-388) Total Bilirubin 0.6 MG/DL (0.2-1.0) Aspartate Amino Transf (AST/SGOT) 23 U/L (15-37) Alanine Aminotransferase (ALT/SGPT) 25 U/L (12-78) Alkaline Phosphatase 70 U/L (46-116) Troponin I 0.000 ng/mL (0.000-0.056) C-Reactive Protein, Quantitative < 0.4 mg/dL (0.00-0.90) Pro-B-Type Natriuretic Peptide 57 pg/mL (0-125) Total Protein 7.2 G/DL (6.4-8.2) Albumin 3.8 G/DL (3.4-5.0) Globulin 3.4 g/dL Albumin/Globulin Ratio 1.1 (1.0-2.7) Triglycerides Level 96 MG/DL (30-150) Cholesterol Level 208 MG/DL (< 200) H LDL Cholesterol 133 mg/dL (<100) H HDL Cholesterol 56 MG/DL (40-60) Cholesterol/HDL Ratio 3.7 (3.3-4.4) Vitamin B12 Level 601 PG/ML (193-986) Folate 37.8 NG/ML (8.6-58.9) Thyroid Stimulating Hormone (TSH) 1.219 uiU/mL (0.358-3.740) Free Thyroxine 1.03 NG/DL (0.76-1.46) Current Medications Medications (Trade) Dose Ordered Sig/Betty Route PRN Reason Start Time Stop Time Status Last Admin Dose Admin Acetaminophen (Tylenol) 650 mg Q4H PRN ORAL Mild Pain (Pain Scale 1-3) 12/16/19 08:30 01/15/20 08:29 12/16/19 18:06 Famotidine (Pepcid) 20 mg BID ORAL 12/17/19 18:00 03/16/20 17:59 Loperamide HCl (Imodium) 2 mg Q4H PRN ORAL Diarrhea 12/17/19 09:00 01/16/20 08:59 12/17/19 09:20 Ondansetron HCl (Zofran) 4 mg Q6H PRN IVP Nausea & Vomiting 12/16/19 02:15 01/15/20 02:14 12/16/19 18:06 Potassium Chloride/Sodium Chloride 1,000 ml @ 50 mls/hr Q20H IV 12/16/19 12:00 01/15/20 11:59 12/17/19 12:16 Potassium Chloride (K-Dur) 40 meq TWICE A DAY ORAL 12/17/19 09:15 03/16/20 09:14 12/17/19 09:15 Zolpidem Tartrate (Ambien) 5 mg HSPRN PRN ORAL Insomnia 12/16/19 22:00 12/23/19 21:59 12/16/19 22:31 Romain Loyola MD Dec 17, 2019 15:28
[2019-12-17 16:00] VITALS: BP 153/84
--- NOTE | 2019-12-17 19:26 | NUR ---
NURSE HAND-OFF: Important Events on Shift:Transferred from telemetry Patient Status: stable Diet: regular Pending Orders: n/a Pending Results/Labs:n/a Pending MD notification:n/a Latest Vital Signs: Temperature 98.2 , Pulse 71 , B/P 153 /84 , Respiratory Rate 18 , O2 SAT 98 , Room Air, O2 Flow Rate . Vital Sign Comment: stable Latest Ramos Fall Score: 20 Fall Risk: Low Risk Safety Measures: Call light Within Reach, Bed Alarm Zone 1, Side Rails Side Rails x2, Bed position Low and Locked. Fall Precautions: Patient Fall Education Report given to KIM Snyder.
--- NOTE | 2019-12-17 19:27 | NUR ---
NURSE NOTES: Received a pt on the bed awake,A&Ox4, and verbal. Pt has no sob,fever,pain and cough at the moment. Iv is intact and asymptomatic. Bed is in the lowest position,locked and call light within reach. We will keep monitoring the pt.
[2019-12-17 20:00] VITALS: BP 135/77
--- NOTE | 2019-12-17 21:21 | General Progress Note ---
Subjective ROS Limited/Unobtainable: Yes Allergies: Coded Allergies: No Known Allergies (Unverified , 10/17/18) Objective Last 24 Hour Vital Signs Date Time Temp Pulse Resp B/P (MAP) Pulse Ox O2 Delivery O2 Flow Rate FiO2 12/17/19 20:00 98.0 82 18 135/77 (96) 98 12/17/19 16:00 98.2 71 18 153/84 (107) 98 12/17/19 12:00 98.8 80 19 144/88 (106) 99 12/17/19 09:04 Room Air 12/17/19 08:00 98.2 77 20 124/66 (85) 97 12/17/19 07:29 77 12/17/19 04:00 76 12/17/19 04:00 99.0 71 20 139/78 (98) 100 12/17/19 00:00 84 12/17/19 00:00 98.8 84 20 123/65 (84) 100 Intake and Output 12/16/19 12/17/19 19:00 07:00 Intake Total 190 ml 900 ml Balance 190 ml 900 ml Intake Oral 140 ml 500 ml IV Total 50 ml 400 ml # Voids 3 # Bowel Movements 1 Laboratory Tests 12/17/19 06:49: White Blood Count 7.3, Red Blood Count 4.40, Hemoglobin 12.8, Hematocrit 34.9L, Mean Corpuscular Volume 79L, Mean Corpuscular Hemoglobin 29.1, Mean Corpuscular Hemoglobin Concent 36.7H, Red Cell Distribution Width 13.1, Platelet Count 314, Mean Platelet Volume 6.2L, Neutrophils (%) (Auto) 49.8, Lymphocytes (%) (Auto) 33.0, Monocytes (%) (Auto) 10.5H, Eosinophils (%) (Auto) 5.0H, Basophils (%) (Auto) 1.7, Sodium Level 140, Potassium Level 3.2L, Chloride Level 104, Carbon Dioxide Level 23, Anion Gap 13, Blood Urea Nitrogen 10, Creatinine 0.9, Estimat Glomerular Filtration Rate > 60, Glucose Level 119H, Hemoglobin A1c 6.3H, Uric Acid 4.4, Calcium Level 8.3L, Phosphorus Level 3.4, Magnesium Level 1.9, Iron Level 102, Total Iron Binding Capacity 362, Percent Iron Saturation 28, Unsaturated Iron Binding 260, Ferritin 37, Total Bilirubin 0.6, Aspartate Amino Transf (AST/SGOT) 23, Alanine Aminotransferase (ALT/SGPT) 25, Alkaline Phosphatase 70, Troponin I 0.000, C-Reactive Protein, Quantitative < 0.4, Pro-B-Type Natriuretic Peptide 57, Total Protein 7.2, Albumin 3.8, Globulin 3.4, Albumin/Globulin Ratio 1.1, Triglycerides Level 96, Cholesterol Level 208H, LDL Cholesterol 133H, HDL Cholesterol 56, Cholesterol/HDL Ratio 3.7, Vitamin B12 Level 601, Folate 37.8, Thyroid Stimulating Hormone (TSH) 1.219, Free Thyroxine 1.03 Height (Feet): 4 Height (Inches): 11.00 Weight (Pounds): 175 Assessment/Plan Problem List: (1) Uterine fibroid (2) Abdominal pain ICD Codes: R10.9 - Unspecified abdominal pain SNOMED: 95573594 (3) Abdominal pain (4) Hypokalemia ICD Codes: E87.6 - Hypokalemia SNOMED: 95562089 (5) Nausea, vomiting, and diarrhea ICD Codes: R11.2 - Nausea with vomiting, unspecified; R19.7 - Diarrhea, unspecified SNOMED: 2577402 (6) Electrolyte imbalance ICD Codes: E87.8 - Other disorders of electrolyte and fluid balance, not elsewhere classified SNOMED: 135091358 Status: progressing Assessment/Plan: dc planning afebrile low k is improving vomitting is improving Maira Jacques MD Dec 17, 2019 21:21
[2019-12-17] MEDS: Zolpidem 5mg tab ORAL PRN (21:33)
[2019-12-18] VITALS: BP_SYST 107; BP_SYST 141; BP_DIAS 64; BP_DIAS 84
[2019-12-18] MEDS: NS w/KCl 20mEq 1000ml 1,000 ML IV SCH (04:00)
--- NOTE | 2019-12-18 06:14 | NUR ---
NURSE HAND-OFF: Important Events on Shift:na Patient Status: stable Diet: reg Pending Orders: Pending Results/Labs:mag,phos,cbc,cmp Pending MD notification: Latest Vital Signs: Temperature 98.2 , Pulse 95 , B/P 141 /84 , Respiratory Rate 18 , O2 SAT 99 , Room Air, O2 Flow Rate . Vital Sign Comment: Latest Ramos Fall Score: 20 Fall Risk: Low Risk Safety Measures: Call light Within Reach, Bed Alarm Zone 1, Side Rails Side Rails x2, Bed position Low and Locked. Fall Precautions: Patient Fall Education .
[2019-12-18 07:00] LABS: BASOPHILS % (AUTO) 3.5 % (0.0-2.0); EOSINOPHILS % (AUTO) 5.7 % (0.0-3.0); HEMATOCRIT 35.7 % (37.0-47.0); HEMOGLOBIN 12.9 G/DL (12.0-16.0); LYMPHOCYTES % (AUTO) 28.4 % (20.0-45.0); MEAN CORPUSCULAR VOLUME 80 FL (80-99); MONOCYTES % (AUTO) 10.9 % (1.0-10.0); NEUTROPHILS % (AUTO) 51.5 % (45.0-75.0); PLATELET COUNT 293 K/UL (150-450); RED BLOOD COUNT 4.48 M/UL (4.20-5.40); WHITE BLOOD COUNT 7.8 K/UL (4.8-10.8)
[2019-12-18 07:17] LABS: ALANINE AMINOTRANSFERASE 24 U/L (12-78); ALBUMIN 3.6 G/DL (3.4-5.0); ALBUMIN/GLOBULIN RATIO 1.1 (1.0-2.7); ALKALINE PHOSPHATASE 69 U/L (46-116); ANION GAP 8 mmol/L (5-15); ASPARTATE AMINO TRANSFERASE 20 U/L (15-37); BILIRUBIN,TOTAL 0.5 MG/DL (0.2-1.0); BLOOD UREA NITROGEN 7 mg/dL (7-18); CALCIUM 8.4 MG/DL (8.5-10.1); CARBON DIOXIDE 26 MMOL/L (21-32); CHLORIDE 106 MMOL/L (98-107); CREATININE 0.7 MG/DL (0.55-1.30); PHOSPHORUS 3.1 MG/DL (2.5-4.9); POTASSIUM 3.8 MMOL/L (3.5-5.1); SODIUM 140 MMOL/L (136-145)
--- NOTE | 2019-12-18 07:28 | NUR ---
HAND-OFF: Report given to KIM Clark.
--- NOTE | 2019-12-18 07:57 | NUR ---
NURSE NOTES: Report received from KIM Snyder. Patient observed to be asleep, currently on room air no s/sx of SOB/Distress, no c/o any discomfort as of the moment. IV site located on RAC gauge 20 running 1/2NS with 20 mEq KCL at 50cc. Asymptomatic, inplace and intact. Bed placed on lowest and locked position, call light placed within reach and will continue to monitor for any changes in condition.
[2019-12-18 08:00] VITALS: BP 135/74
--- NOTE | 2019-12-18 10:48 | Infectious Diseases Prog Note ---
Assessment/Plan Assessment/Plan IMPRESSION: Gastroenteritis with nausea, vomiting, and diarrhea. hypokalemia, corrected Cannabinoid abuse, cannabinoid hyperemesis syndrome, Diastolic CHF. RECOMMENDATION: Agree with discharge. Subjective ROS Limited/Unobtainable: Yes Constitutional: Reports: no symptoms Respiratory: Reports: no symptoms Cardiovascular: Reports: no symptoms Gastrointestinal/Abdominal: Reports: no symptoms Genitourinary: Reports: no symptoms Allergies: Coded Allergies: No Known Allergies (Unverified , 10/17/18) Objective Last 24 Hour Vital Signs Date Time Temp Pulse Resp B/P (MAP) Pulse Ox O2 Delivery O2 Flow Rate FiO2 12/18/19 09:00 Room Air 12/18/19 08:00 98.1 84 20 135/74 (94) 100 12/18/19 00:00 98.2 95 18 141/84 (103) 99 12/17/19 21:00 Room Air 12/17/19 20:00 98.0 82 18 135/77 (96) 98 12/17/19 16:00 98.2 71 18 153/84 (107) 98 12/17/19 12:00 98.8 80 19 144/88 (106) 99 Height (Feet): 4 Height (Inches): 11.00 Weight (Pounds): 175 HEENT: mucous membranes moist Respiratory/Chest: normal breath sounds Cardiovascular: normal rate Abdomen: soft, non tender Extremities: no edema Neurologic/Psychiatric: alert, oriented x 3, responsive Microbiology Date/Time Source Procedure Growth Status 12/17/19 06:15 Stool Clostridium difficile Toxin Assay - Final Complete 12/16/19 09:40 Urine,Clean Catch Urine Culture - Preliminary Gram Negative Donald Mixed Gram Positive Organism Resulted Laboratory Tests Test 12/18/19 06:00 White Blood Count 7.8 K/UL (4.8-10.8) Red Blood Count 4.48 M/UL (4.20-5.40) Hemoglobin 12.9 G/DL (12.0-16.0) Hematocrit 35.7 % (37.0-47.0) L Mean Corpuscular Volume 80 FL (80-99) Mean Corpuscular Hemoglobin 28.7 PG (27.0-31.0) Mean Corpuscular Hemoglobin Concent 36.0 G/DL (32.0-36.0) Red Cell Distribution Width 13.0 % (11.6-14.8) Platelet Count 293 K/UL (150-450) Mean Platelet Volume 6.0 FL (6.5-10.1) L Neutrophils (%) (Auto) 51.5 % (45.0-75.0) Lymphocytes (%) (Auto) 28.4 % (20.0-45.0) Monocytes (%) (Auto) 10.9 % (1.0-10.0) H Eosinophils (%) (Auto) 5.7 % (0.0-3.0) H Basophils (%) (Auto) 3.5 % (0.0-2.0) H Sodium Level 140 MMOL/L (136-145) Potassium Level 3.8 MMOL/L (3.5-5.1) Chloride Level 106 MMOL/L (98-107) Carbon Dioxide Level 26 MMOL/L (21-32) Anion Gap 8 mmol/L (5-15) Blood Urea Nitrogen 7 mg/dL (7-18) Creatinine 0.7 MG/DL (0.55-1.30) Estimat Glomerular Filtration Rate > 60 mL/min (>60) Glucose Level 114 MG/DL (74-106) H Calcium Level 8.4 MG/DL (8.5-10.1) L Phosphorus Level 3.1 MG/DL (2.5-4.9) Magnesium Level 2.0 MG/DL (1.8-2.4) Total Bilirubin 0.5 MG/DL (0.2-1.0) Aspartate Amino Transf (AST/SGOT) 20 U/L (15-37) Alanine Aminotransferase (ALT/SGPT) 24 U/L (12-78) Alkaline Phosphatase 69 U/L (46-116) Total Protein 7.0 G/DL (6.4-8.2) Albumin 3.6 G/DL (3.4-5.0) Globulin 3.4 g/dL Albumin/Globulin Ratio 1.1 (1.0-2.7) Current Medications Medications (Trade) Dose Ordered Sig/Betty Route PRN Reason Start Time Stop Time Status Last Admin Dose Admin Acetaminophen (Tylenol) 650 mg Q4H PRN ORAL Mild Pain (Pain Scale 1-3) 12/16/19 08:30 01/15/20 08:29 12/18/19 08:28 Famotidine (Pepcid) 20 mg BID ORAL 12/17/19 18:00 03/16/20 17:59 12/18/19 08:27 Loperamide HCl (Imodium) 2 mg Q4H PRN ORAL Diarrhea 12/17/19 09:00 01/16/20 08:59 12/17/19 18:16 Ondansetron HCl (Zofran) 4 mg Q6H PRN IVP Nausea & Vomiting 12/16/19 02:15 01/15/20 02:14 12/16/19 18:06 Potassium Chloride/Sodium Chloride 1,000 ml @ 50 mls/hr Q20H IV 12/16/19 12:00 01/15/20 11:59 12/17/19 12:16 Potassium Chloride (K-Dur) 40 meq TWICE A DAY ORAL 12/17/19 09:15 03/16/20 09:14 12/18/19 08:27 Zolpidem Tartrate (Ambien) 5 mg HSPRN PRN ORAL Insomnia 12/16/19 22:00 12/23/19 21:59 12/17/19 21:33 Romain Loyola MD Dec 18, 2019 10:48
--- NOTE | 2019-12-18 11:00 | Nephrology Progress Note ---
Assessment/Plan Problem List: (1) Hypokalemia (2) Nausea, vomiting, and diarrhea (3) Abdominal pain (4) Electrolyte imbalance (5) Cannabis abuse Assessment Hypokalemia most likely due to diarrhea GI pathology: Nausea vomiting diarrhea, possible gastroenteritis History of CHF, on Lasix Cannabis abuse Plan December 17: Lab reviewed. Renal parameters stable. Medication list reviewed. Patient stable from renal standpoint of view. IV hydration discontinued as the patient appears to be tolerating p.o. regular diet Potassium supplements PO & IV as needed 2D echocardiogram : Left ventricular ejection fraction estimated to be 60 %. Per GI advice Monitor electrolytes and renal parameters Check urine for tox screen, positive for cannabis Subjective ROS Limited/Unobtainable: No Objective Objective Last 24 Hour Vital Signs Date Time Temp Pulse Resp B/P (MAP) Pulse Ox O2 Delivery O2 Flow Rate FiO2 12/18/19 09:00 Room Air 12/18/19 08:00 98.1 84 20 135/74 (94) 100 12/18/19 00:00 98.2 95 18 141/84 (103) 99 12/17/19 21:00 Room Air 12/17/19 20:00 98.0 82 18 135/77 (96) 98 12/17/19 16:00 98.2 71 18 153/84 (107) 98 12/17/19 12:00 98.8 80 19 144/88 (106) 99 Intake and Output 12/17/19 12/18/19 19:00 07:00 Intake Total 550 ml Balance 550 ml Intake Oral 550 ml # Voids 2 # Bowel Movements 1 Current Medications Medications (Trade) Dose Ordered Sig/Betty Route PRN Reason Start Time Stop Time Status Last Admin Dose Admin Acetaminophen (Tylenol) 650 mg Q4H PRN ORAL Mild Pain (Pain Scale 1-3) 12/16/19 08:30 01/15/20 08:29 12/18/19 08:28 Famotidine (Pepcid) 20 mg BID ORAL 12/17/19 18:00 03/16/20 17:59 12/18/19 08:27 Loperamide HCl (Imodium) 2 mg Q4H PRN ORAL Diarrhea 12/17/19 09:00 01/16/20 08:59 12/17/19 18:16 Ondansetron HCl (Zofran) 4 mg Q6H PRN IVP Nausea & Vomiting 12/16/19 02:15 01/15/20 02:14 12/16/19 18:06 Potassium Chloride/Sodium Chloride 1,000 ml @ 50 mls/hr Q20H IV 12/16/19 12:00 01/15/20 11:59 12/17/19 12:16 Potassium Chloride (K-Dur) 40 meq TWICE A DAY ORAL 12/17/19 09:15 03/16/20 09:14 12/18/19 08:27 Zolpidem Tartrate (Ambien) 5 mg HSPRN PRN ORAL Insomnia 12/16/19 22:00 12/23/19 21:59 12/17/19 21:33 Laboratory Tests 12/18/19 06:00: White Blood Count 7.8, Red Blood Count 4.48, Hemoglobin 12.9, Hematocrit 35.7L, Mean Corpuscular Volume 80, Mean Corpuscular Hemoglobin 28.7, Mean Corpuscular Hemoglobin Concent 36.0, Red Cell Distribution Width 13.0, Platelet Count 293, Mean Platelet Volume 6.0L, Neutrophils (%) (Auto) 51.5, Lymphocytes (%) (Auto) 28.4, Monocytes (%) (Auto) 10.9H, Eosinophils (%) (Auto) 5.7H, Basophils (%) (Auto) 3.5H, Sodium Level 140, Potassium Level 3.8, Chloride Level 106, Carbon Dioxide Level 26, Anion Gap 8, Blood Urea Nitrogen 7, Creatinine 0.7, Estimat Glomerular Filtration Rate > 60, Glucose Level 114H, Calcium Level 8.4L, Phosphorus Level 3.1, Magnesium Level 2.0, Total Bilirubin 0.5, Aspartate Amino Transf (AST/SGOT) 20, Alanine Aminotransferase (ALT/SGPT) 24, Alkaline Phosphatase 69, Total Protein 7.0, Albumin 3.6, Globulin 3.4, Albumin/Globulin Ratio 1.1 Height (Feet): 4 Height (Inches): 11.00 Weight (Pounds): 175 General Appearance: no apparent distress Cardiovascular: normal rate Respiratory/Chest: decreased breath sounds Abdomen: soft Objective No change Jimbo Rivas MD Dec 18, 2019 11:00
--- NOTE | 2019-12-18 11:02 | General Progress Note ---
Subjective Date patient seen: Dec 18, 2019 Time patient seen: 09:15 - am Allergies: Coded Allergies: No Known Allergies (Unverified , 10/17/18) Subjective HISTORY OF PRESENT ILLNESS: This is a 64-year-old female who has been seen on the med/surg floor of [facility]. Patient denies pain at this time. Reports that she is feeling better. Objective Last 24 Hour Vital Signs Date Time Temp Pulse Resp B/P (MAP) Pulse Ox O2 Delivery O2 Flow Rate FiO2 12/18/19 09:00 Room Air 12/18/19 08:00 98.1 84 20 135/74 (94) 100 12/18/19 00:00 98.2 95 18 141/84 (103) 99 12/17/19 21:00 Room Air 12/17/19 20:00 98.0 82 18 135/77 (96) 98 12/17/19 16:00 98.2 71 18 153/84 (107) 98 12/17/19 12:00 98.8 80 19 144/88 (106) 99 Intake and Output 12/17/19 12/18/19 19:00 07:00 Intake Total 550 ml Balance 550 ml Intake Oral 550 ml # Voids 2 # Bowel Movements 1 Laboratory Tests 12/18/19 06:00: White Blood Count 7.8, Red Blood Count 4.48, Hemoglobin 12.9, Hematocrit 35.7L, Mean Corpuscular Volume 80, Mean Corpuscular Hemoglobin 28.7, Mean Corpuscular Hemoglobin Concent 36.0, Red Cell Distribution Width 13.0, Platelet Count 293, Mean Platelet Volume 6.0L, Neutrophils (%) (Auto) 51.5, Lymphocytes (%) (Auto) 28.4, Monocytes (%) (Auto) 10.9H, Eosinophils (%) (Auto) 5.7H, Basophils (%) (Auto) 3.5H, Sodium Level 140, Potassium Level 3.8, Chloride Level 106, Carbon Dioxide Level 26, Anion Gap 8, Blood Urea Nitrogen 7, Creatinine 0.7, Estimat Glomerular Filtration Rate > 60, Glucose Level 114H, Calcium Level 8.4L, Phosphorus Level 3.1, Magnesium Level 2.0, Total Bilirubin 0.5, Aspartate Amino Transf (AST/SGOT) 20, Alanine Aminotransferase (ALT/SGPT) 24, Alkaline Phosphatase 69, Total Protein 7.0, Albumin 3.6, Globulin 3.4, Albumin/Globulin Ratio 1.1 Height (Feet): 4 Height (Inches): 11.00 Weight (Pounds): 175 Assessment/Plan Status: progressing Assessment/Plan: (1) Abdominal pain (2) Cannabinoid Hyperemesis Syndrome Patient to be continued on Tylenol We will discontinue Dilaudid D/w Dr. Roy and he concurred. Chris Ferrera Dec 18, 2019 11:02
--- NOTE | 2019-12-18 12:15 | NUR ---
NURSE NOTES: Patient alert, awake, and oriented x4. Currently on room air, no s/sx of SOB/Distress, no c/o any discomfort. Orders for discharge to home with [facility] carried out. Patient IV line and ID band removed. Discharge paperworks accomplished and signed by patient. Notified RP. All patient's belongings checked and accounted for. Accompanied patient to private vehicle. Patient discharged in stable condition.
--- NOTE | 2019-12-18 23:57 | General Progress Note ---
Subjective Allergies: Coded Allergies: No Known Allergies (Unverified , 10/17/18) Subjective Feels better tolerating PO diet advanced patient seen this am Objective Last 24 Hour Vital Signs Date Time Temp Pulse Resp B/P (MAP) Pulse Ox O2 Delivery O2 Flow Rate FiO2 12/18/19 09:00 Room Air 12/18/19 08:00 98.1 84 20 135/74 (94) 100 12/18/19 00:00 98.2 95 18 141/84 (103) 99 Intake and Output 12/17/19 12/18/19 19:00 07:00 Intake Total 550 ml Balance 550 ml Intake Oral 550 ml # Voids 2 # Bowel Movements 1 Laboratory Tests 12/18/19 06:00: White Blood Count 7.8, Red Blood Count 4.48, Hemoglobin 12.9, Hematocrit 35.7L, Mean Corpuscular Volume 80, Mean Corpuscular Hemoglobin 28.7, Mean Corpuscular Hemoglobin Concent 36.0, Red Cell Distribution Width 13.0, Platelet Count 293, Mean Platelet Volume 6.0L, Neutrophils (%) (Auto) 51.5, Lymphocytes (%) (Auto) 28.4, Monocytes (%) (Auto) 10.9H, Eosinophils (%) (Auto) 5.7H, Basophils (%) (Auto) 3.5H, Sodium Level 140, Potassium Level 3.8, Chloride Level 106, Carbon Dioxide Level 26, Anion Gap 8, Blood Urea Nitrogen 7, Creatinine 0.7, Estimat Glomerular Filtration Rate > 60, Glucose Level 114H, Calcium Level 8.4L, Phosphorus Level 3.1, Magnesium Level 2.0, Total Bilirubin 0.5, Aspartate Amino Transf (AST/SGOT) 20, Alanine Aminotransferase (ALT/SGPT) 24, Alkaline Phosphatase 69, Total Protein 7.0, Albumin 3.6, Globulin 3.4, Albumin/Globulin Ratio 1.1 Height (Feet): 4 Height (Inches): 11.00 Weight (Pounds): 175 Objective WDWN NCAT supple CTA RRRR abd soft ND no edema Assessment/Plan Status: progressing Assessment/Plan: Assessment N/V Diarrhea likely viral gastroenteritis Recommendations IVF advance diet d/c planning per PMD Kvng Ozuna MD Dec 18, 2019 23:57
--- NOTE | 2019-12-19 18:49 | Discharge Summary ---
Discharge Summary Discharge Summary _ DATE OF ADMISSION: 12/16/2019 DATE OF DISCHARGE: 12/18/2019 DISCHARGED BY: Dr. Maira Watson CONSULTANTS: Dr. Kvng Matamoros [facility] HOSPITAL COURSE: Patient is a 64-year-old female with history of CHF on Lasix, presented to ED due to vomiting and diarrhea. Patient had vomiting and diarrhea multiple times throughout the day. Vomit was nonbilious and nonbloody. On arrival to ED, vital signs were stable. Blood work did not show any leukocytosis. Hemoglobin and hematocrit were stable. Potassium was 2.4. Urinalysis was essentially negative. Patient required multiple doses of antiemetics and pain medication. EKG showed signs of QT prolongation and U waves. She was given potassium supplement IV and p.o. She was then admitted to telemetry. She was hooked on administrative coordinator. She was given potassium replacement. She was given IV hydration. Patient complained of abdominal pain. She was started on Dilaudid. Urine toxicology was positive for marijuana. Dilaudid was discontinued and patient was given Tylenol. Echocardiogram showed EF of 60%. Diet was advanced and was tolerating diet. Patient was eventually discharged home. FINAL DIAGNOSES: Diarrhea, likely viral gastroenteritis Cannabinoid hyperemesis syndrome Hypokalemia, corrected Diastolic CHF DISPOSITION: Patient was discharged home with home health. DISCHARGE INSTRUCTIONS: Follow-up in a week. I have been assigned to complete a discharge summary on this account, I was not involved with the patient's management.--MARGARITA Rust Jacqueline Robles NP Dec 19, 2019 18:49
--- NOTE | 2019-12-21 06:18 | Cardiology Report ---
APPROVED REPORT EKG Measurement Heart [id number] <Conclusion> Normal sinus rhythm Normal ECG
== END 2019-12-18 12:15 | disposition home or self-care (01) | DRG 392 ==
LOC: EMR 23:38 → 2E 12-16 00:39 → EDBEDREQ 12-16 01:50 → 4E 12-17 11:34
DX: A08.4 Viral intestinal infection, unspecified (principal); I50.30 Unspecified diastolic (congestive) heart failure; E87.6 Hypokalemia; F12.10 Cannabis abuse, uncomplicated; F12.188 Cannabis abuse with other cannabis-induced disorder; K21.9 Gastro-esophageal reflux disease without esophagitis; R94.31 Abnormal electrocardiogram [ECG] [EKG]
CPT/HCPCS: 36415; 80053; 80061; 80307; 81003; 82607; 82728; 82746; 83036; 83540; 83550; 83690; 83735; 83880; 84100; 84439; 84443; 84484; 84550; 85025; 86140; 87086; 87181; 87324; 93005; 93306; 93970; 96361; 96365; 96375; 99285; J2405; J2765; J7030; J8499

== ENCOUNTER → 2020-04-20 | Emergency (ER) | payer MEDICARE, MEDICAID ==
[~2020-04-20] VITALS: Ht 149.9 cm; Wt 77.1 kg
[~2020-04-20] MED LIST changes: +HYDROCODON-ACE1 EA15 ORAL; +HYDROmorphone 1mg/ml Carpuject IM ONE
--- NOTE | 2020-04-20 22:04 | Emergency Room Report ---
History of Present Illness General Chief Complaint: Pain Source: Patient Present Illness HPI This is a 64-year-old female with a history of chronic leg pain and lymphedema. This has been ongoing since she was 19. Resents with increasing leg pain. Onset for last week. Pain is her back already down her buttock into the lateral aspect of her leg. No increase in edema. No fever chills but no nausea no vomi ting. Pain is 9 out of 10. No relief with Tylenol and Zanaflex. No fever chills but no shortness of breath. Worse with walking. Better with rest. No trauma or fever. 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 Patient History Past Medical History: see triage record, old chart reviewed Past Surgical History: other Pertinent Family History: none Social History: Denies: smoking Now: No Immunizations: other Reviewed Nursing Documentation: PMH: Agreed; PSxH: Agreed Nursing Documentation-PMH Past Medical History: No History, Except For Hx Cancer: No Hx Gastrointestinal Problems: No Hx Neurological Problems: No Review of Systems Eye: Denies: eye pain, blurred vision ENT: Denies: ear pain, nose congestion, throat swelling Respiratory: Denies: cough, shortness of breath Cardiovascular: Denies: chest pain, palpitations Gastrointestinal: Denies: abdominal pain, diarrhea, nausea, vomiting Musculoskeletal: Reports: back pain; Denies: joint pain Skin: Denies: rash Neurological: Denies: headache, numbness Endocrine: Denies: increased thirst, increased urine Hematologic/Lymphatic: Denies: easy bruising All Other Systems: negative except mentioned in HPI Physical Exam Vital Signs Date Time Temp Pulse Resp B/P (MAP) Pulse Ox O2 Delivery O2 Flow Rate FiO2 04/20/20 21:31 97.3 89 20 134/76 (95) 98 Room Air Vitals normal Sp02 EP Interpretation: reviewed, normal General Appearance: well appearing, no apparent distress, alert Head: normocephalic, atraumatic Eyes: bilateral eye PERRL, bilateral eye EOMI ENT: hearing grossly normal, normal pharynx Neck: full range of motion, supple, no meningismus Respiratory: chest non-tender, lungs clear, normal breath sounds Cardiovascular #1: regular rate, rhythm, no murmur Gastrointestinal: normal bowel sounds, non tender, no mass, no organomegaly, no bruit, non-distended Musculoskeletal: back normal, normal range of motion, gait/station normal, other - Left lower extremity with 1+ nonpitting edema. This is unchanged from prior. Good pulse. Normal skin color and warmth. Psychiatric: mood/affect normal Medical Decision Making Diagnostic Impression: Primary Impression: Sciatica of left side ER Course This patient presents with leg pain. Most likely sciatic in nature. No evidence of cauda equina syndrome, spinal epidural abscess or neoplastic process. This is a chronic pain and edema. I doubt this is a DVT. Last Vital Signs Date Time Temp Pulse Resp B/P (MAP) Pulse Ox O2 Delivery O2 Flow Rate FiO2 04/20/20 21:31 97.3 89 20 134/76 (95) 98 Room Air Status: improved Disposition: HOME, SELF-CARE Condition: Stable Scripts Hydrocodone/Acetaminophen 5-325* (HYDROCODONE/ACETAMINOPHEN 5-325*) 1 Each Tablet 1 TAB ORAL Q6H PRN for For Pain, #20 TAB 0 Refills Prov: Agustín Smith MD 04/20/20 Referrals: NOT CHOSEN IPA/,REFERRING (PCP) Additional Instructions: Follow-up with your doctor in 7 days. If you continue to have pain, you may need an MRI of your lower back. Return if symptoms worsen. Agustín Smith MD Apr 20, 2020 22:04
[2020-04-20 22:08] VITALS: BP 134/76
[2020-04-20 22:38] VITALS: BP 135/85
--- NOTE | 2020-04-20 22:38 | NUR ---
ER DISCHARGE NOTE: Patient is cleared to be discharged per ERMD, pt is aox4, on room air, with stable vital signs. pt was given dc and prescription instructions, pt was able to verbalize understanding, pt id band and iv site removed without complications. pt is able to ambulate with steady gait. pt took all belongings.
== END | disposition home or self-care (01) ==
LOC: EMR 21:56
DX: M54.32 Sciatica, left side (principal)
CPT/HCPCS: 96372; 99283; J1170